=== PATIENT | male | born 1965 | race Caucasian/White ===

== ENCOUNTER 2024-05-24 16:53 | Outpatient (REF) | payer OTHER, SELFPAY ==
[2024-05-24 21:16] LABS: HCT 47.5 % (40.0-50.0); HGB 16.5 g/dL (13.5-17.5); MCH 31.7 pg (27.0-33.0); MCHC 34.7 % (32.0-36.0); MCV 91 fL (80-95); MPV 10.6 fL (8.0-11.0); Platelet Count 221 10^3/uL (130-400); RBC 5.21 10^6/uL (4.36-5.78); RDW 12.7 % (11.8-14.1); RDW-SD 41.9 fL; WBC 9.84 10^3/uL (4.4-10.8)
[2024-05-24 21:35] LABS: ALT 37 U/L (16-63); AST 25 U/L (15-37); Alkaline Phosphatase 111 U/L (46-116); Anion Gap 8.6 mmol/L (3-11); BUN 16 mg/dL (7-18); Bilirubin, Total 0.59 mg/dL (0.2-1.0); CO2 26.4 mmol/L (21.0-32.0); CREATININE 0.9 mg/dL (0.70-1.30); Calcium 9.6 mg/dL (8.5-10.1); Calculated LDL 109 mg/dL (<100); Chloride 105 mmol/L (98-107); Cholesterol 196 mg/dL (<200); Glucose 106 mg/dL (74-106); HDL Cholesterol 60 mg/dL (>or=40); Potassium 4.2 mmol/L (3.5-5.1); Sodium 140 mmol/L (136-145); Triglyceride 136 mg/dL (<150)
== END 2024-05-24 16:54 | disposition home or self-care (01) ==
LOC: NCHCN 16:53
PROVIDERS: Visit Provider Nurse Practitioner Family
DX: Z00.00 Encounter for general adult medical examination without abnormal findings (principal)
CPT/HCPCS: 80053; 80061; 85027

== ENCOUNTER 2024-08-30 10:05 | Outpatient (REF) | payer OTHER, SELFPAY ==
[2024-08-30 14:22] LABS: Bilirubin Negative (Negative); Blood Large (Negative); Clarity Clear (Clear); Glucose Negative (Negative); Ketones Negative (Negative); Leukocyte Esterase Negative (Negative); Nitrite Negative (Negative); Specific Gravity 1.015 (1.005-1.025); Urobilinogen 0.2 mg/dL (Up to 0.2)
[2024-08-30 14:33] LABS: Bacteria Negative HPF (Negative); C & S Indicated? No; Casts Negative LPF (Negative); Crystals Negative HPF (Negative); Epithelial Cells Rare HPF (Negative); Mucus Negative (Negative); RBC >50 HPF (0-2); WBC 0-2 HPF (0-5)
== END 2024-08-30 10:06 | disposition home or self-care (01) ==
LOC: NCHCN 10:05
PROVIDERS: Visit Provider Family Medicine
DX: R31.0 Gross hematuria (principal)
CPT/HCPCS: 81003; 81015

== ENCOUNTER 2024-09-07 12:15 | Outpatient (CLI) | payer OTHER, SELFPAY ==
[2024-09-07 18:41] LABS: PSA, Screening 1.2 ng/mL (<=3.5)
== END 2024-09-07 12:16 | disposition home or self-care (01) ==
LOC: LBO 12:16
PROVIDERS: PCP Nurse Practitioner Family; Visit Provider Nurse Practitioner Gerontology
DX: R39.9 Unspecified symptoms and signs involving the genitourinary system (principal)
CPT/HCPCS: 36415; 84153

== ENCOUNTER 2024-09-28 16:49 | Outpatient (CLI) | payer OTHER, SELFPAY | END 2024-09-28 16:50 | disposition home or self-care (01) | PROVIDERS: PCP Nurse Practitioner Family; Visit Provider Urology | DX: N32.89 Other specified disorders of bladder (principal); R31.0 Gross hematuria | CPT/HCPCS: 36415; 86850; 86900; 86901 ==

== ENCOUNTER 2024-10-02 06:18 | Observation (INO) | payer OTHER, SELFPAY ==
[2024-10-02] VITALS (8 sets, daily range): BP systolic 111–132; BP diastolic 77–93; PULSE 54–70; RESP 14–18; TEMP 36.2–37.1; O2SAT 94–99; BMI 25.1
--- NOTE | 2024-10-02 06:22 | W.ANESPRE ---
General Info Date of Service Date Performed: 10/02/24 Height: 5 ft 10 in Weight: 79.379 kg Body Mass Index (BMI): 25.1 Surgical Procedure: Operation Date: 10/02/24 07:40 Proposed Procedure Side Surgeon p Cysto w/Transurethral Resection Bladder Tumor Guerrero Ospina MD Meds Allergies and Home Medications Allergies Allergy/AdvReac Type Severity Reaction Status Date / Time No Known Allergies Allergy Verified 10/02/24 06:58 Home Medication ?Medication ?Instructions ?Recorded apixaban 5 mg tablet (Eliquis) 5 mg PO BID 09/05/24 aspirin 81 mg tablet 81 mg PO DAILY 09/05/24 famotidine 40 mg tablet 40 mg PO DAILY 09/05/24 metoprolol tartrate 25 mg tablet 25 mg PO BID 09/05/24 Current Visit Medications: Current Medications Generic Name Dose Route Start Last Admin Trade Name Freq PRN Reason Stop Dose Admin Ringer's Solution 1,000 mls @ 80 mls/hr 10/02/24 06:00 IV 10/02/24 23:59 INFUSION DANIELLE Cefazolin Sodium/Dextrose 2 gm in 50 mls @ 100 mls/hr 10/02/24 06:00 Ancef Duplex IVPB 10/02/24 23:59 PREOP DANIELLE IV Miscellaneous Supplies 1 each 10/02/24 06:00 Iv Access IV 10/02/24 23:59 DIRECTED DANIELLE Sodium Chloride 0 ml 10/02/24 06:00 Normal Saline Flush 10 Ml Syr IV 10/02/24 23:59 PRN PRN Sodium Chloride 0 ml 10/02/24 06:00 Normal Saline 10 Ml Vial IJ 10/02/24 23:59 DIRECTED PRN Sterile Water 0 ml 10/02/24 06:00 Water,Injection,Sterile 10 Ml Vial IJ 10/02/24 23:59 DIRECTED PRN PFSH Active Problems Active Problems: Problem Status Onset Code Kvng hematuria Acute R31.0 Bladder mass Acute N32.89 Medical History Medical History CVA (cerebral vascular accident) Arthritis Kvng hematuria GERD (gastroesophageal reflux disease) Afib HTN (hypertension) Surgical History Surgical History (Updated 10/02/24 @ 07:00 by Arleen Walls) Hx of hand surgery local Hx of hernia repair at Tobacco Smoking/Tobacco Use Status: Former Tobacco Use Substance Use Substance use: Occasionally Substance use type: marijuana Details: smokes marijuana daily, multiple times a day. Vital Signs and Lab Results Vital Signs Most Recent Vital Signs in EMR: Temp Pulse Resp BP Pulse Ox 37.1 C 70 18 132/92 H 95 10/02/24 07:04 10/02/24 07:04 10/02/24 07:04 10/02/24 07:04 10/02/24 07:04 Lab Results Blood Type / Crossmatch: Antibody Screen NEGATIVE 09/28/24 Anesthesia Assessment and Plan Anesthesia History Personal History: No History of Anesthesia Complications and Unknown Anesthesia History Family History: No Family History of Anesthesia Complications Exercise Tolerance Exercise Tolerance: Metabolic Equivalents>4 Cardiac & Pulmonary Exam Cardiac Exam: Normal S1/S2 Heart Sounds Pulmonary Exam: Clear Bilateral Breath Sounds Implantable Cardiac Device Does patient have a Pacemaker or an ICD?: No Airway Exam Known Difficult Airway: No Mallampati Class: 2 Mouth Opening: Normal (> 3cm) Thyromental Distance: Greater than 3 cm Neck Range of Motion: Full ROM Neck Circumference: Normal Teeth Condition: Normal Dentition ASA Classification ASA Score: ASA 3 Emergency Case?: No NPO Status NPO Status: NPO Clears >2 hours, Solids >8 hours Anesthesia Plan Resuscitation Status: Full Code Anesthesia Technique: General Anesthesia Airway Planned: LMA Monitors Used: Standard Monitors Preoperative Comments:: 58 yo male for cysto/TURBT. Sig PMHx: HTN, afib (metoprolol, apixaban. Goes in and out, can tell.), CVA (2020. occipital. 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 rare. goes weeks without issues). former smoker. occ cannabis. ECHO ([place]2020): LVEF 55%, mild MR, large PFO, concentric LVH.
--- NOTE | 2024-10-02 06:54 | W.PM.HP.N ---
Date of service: 10/02/24 Time of Service: 06:54 Assessment and Plan Assessment and plan (1) Bladder mass: Status: Acute Assessment and plan: For cystoscopy with TURBT. We may need to keep him in the hospital for CBI postoperatively, but we will make that decision immediately after the procedure History of Present Illness History of Present Illness Chief Complaint: Bladder mass Narrative: Jared is a 58-year-old male with gross hematuria. He is on Eliquis for atrial fibrillation. He discontinued the Eliquis for a dental procedure and when he restarted the Eliquis, he noted gross hematuria with clots. His initial bleeding episode occurred about 3 months ago. He was evaluated with a CT urogram which showed a mass on the right side of the bladder. He presents now for cystoscopy and transurethral resection of any visible bladder tumor. We have arranged for possible admission for bladder irrigation based on the surgery outcome. He has held his Eliquis for 48 hours prior to the scheduled procedure. Review of Systems Narrative: No fevers or chills Decreased visual acuity due to stroke. No dysphasia No diabetes or thyroid dysfunction No shortness of breath, cough or hemoptysis Atrial Fibrillation - goes in and out. No chest pain GERD. No hepatitis, ulcers, jaundice, diarrhea or constipation Hx stroke. No seizures or peripheral neuropathy Routinely on Eliquis. No anemia No gout PFSH All Active Problems Kvng hematuria (Acute) Bladder mass (Acute) Medical History CVA (cerebral vascular accident) Arthritis GERD (gastroesophageal reflux disease) Afib HTN (hypertension) Surgical History Hx of hand surgery local Hx of hernia repair at Social History Smoking/Tobacco Use Status: Former Tobacco Use Smoking risk assessment performed?: Yes Alcohol Intake: former Drug use: Occasionally Substance use type: marijuana Details: smokes marijuana daily, multiple times a day. Marijuana: t-1, joint Housing: house Do you feel safe at home: Yes Do you feel safe in your relationship?: Yes Additional Social history: unable to assess privately Meds Allergies and Home Medications Allergies Allergy/AdvReac Type Severity Reaction Status Date / Time No Known Allergies Allergy Verified 10/02/24 06:58 Home Medications ?Medication ?Instructions ?Recorded ?Confirmed ?Type apixaban 5 mg tablet (Eliquis) 5 mg PO BID 09/05/24 10/02/24 History aspirin 81 mg tablet 81 mg PO DAILY 09/05/24 10/02/24 History famotidine 40 mg tablet 40 mg PO DAILY 09/05/24 09/28/24 History metoprolol tartrate 25 mg tablet 25 mg PO BID 09/05/24 10/02/24 History Exam Const General: cooperative and anxious Neck Neck: supple Resp Effort & Inspection: normal respiratory effort Auscultation: clear to auscultation bilaterally Cardio Rate: regular rate Rhythm: regular rhythm GI Palpation: soft and no masses Neuro General: patient alert, patient awake and patient oriented x3 Time Spent Time spent with Patient: <40 minutes Time was spent: preparing to see the patient(eg.review tests), obtaining and/or reviewing separately otained hiistory and other
[2024-10-02] MEDS: Lactated Ringers 1,000 ML 80 ML IV (07:20)
[2024-10-02] MEDS: ceFAZolin 2 GM/50 ML BAG IVPB (07:33)
[2024-10-02] MEDS: Lidocaine 2% Jelly 11 ML SYR (08:03)
--- NOTE | 2024-10-02 08:06 | BLADDER_PTH ---
PATIENT: Jared Fletcher LOC: [facility] U#:[id number] AGE/SX: 58/M ROOM: [facility].2 RE10/02/[address]: Guerrero Ospina MD : 1965 BED: A DIS: 10/02/2024 SPEC #: [id number] RECD: 10/02/24 12:56 STATUS: KINDRA REQ #: [id number] ILYA: 10/02/24 08:[address]: Guerrero Ospina DEPT: Surgical Specimen RECD BY: Lynette Garrett ENTERED: 10/02/24 12:57 SP TYPE: Bladder OTHR DR: Viviana Lindsey Tissues: 1 - BLADDER BIOPSY Procedures: GROSS AND MICRO LEVEL 5 Comments: [id number]
--- NOTE | 2024-10-02 08:25 | W.PM.DSUDISC ---
Date of service: 10/02/24 Discharge Plan Disposition Patient Disposition: Home Condition: Stable Discharge Details Admit Date/Time: 10/02/24 06:18 Admit Provider: Guerrero Ospina Attending Provider: Guerrero Ospina Primary Care Provider: Viviana Lindsey Home Meds and New Rx's Prescriptions: No Action famotidine 40 mg tablet 40 mg PO DAILY aspirin 81 mg tablet 81 mg PO DAILY metoprolol tartrate 25 mg tablet 25 mg PO BID Eliquis 5 mg tablet 5 mg PO BID Discharge Instructions Additional Instructions: foster to leg bag or large drainage bag follow up 3 to 5 days for catheter removal followup 1 to 2 weeks for pathology results hold Eliquis after 24 hours only if urine remains clear - otherwise hold Eliquis until until is clear for 24 hours Activity:: no lifting over 10 pounds Equipment/Supplies:: foster to leg bag/large dr Diet:: As Tolerated Discharge Orders Discharge Orders: Discharge Order (Routine); Ordered 10/02/24 Ordered By: Guerrero Ospina DS: Diagnosis Discharge Diagnosis (1) Bladder mass: Status: Acute
--- NOTE | 2024-10-02 08:31 | ROE_ITS ---
Operative Note Operative Note PRE-OP DIAGNOSIS: Bladder tumor POST-OP DIAGNOSIS: same PROCEDURE: cystoscopy with TUR Bladder Tumor (2 to 5 cm) SURGEON: Guerrero Ospina ANESTHESIA TYPE: Local By Surgeon and General LMA/ETT Refer to Anesthesia Record ESTIMATED BLOOD LOSS: 5 PATHOLOGY: other (bladder tumor) COMPLICATIONS: None Patient was transported to: PACU Patient's condition: stable Implants: 20 tajik foster catheter with 10 cc sterile water in balloon Indications: This is a 58-year-old gentleman who developed gross, painless hematuria about 3 months ago. His evaluation included a CT urogram which showed no upper tract disease but filling defects on the right side of the bladder. He presents now for cystoscopy and transurethral resection of these areas Findings: Two papillary lesions on right bladder wall - lesions measure 2 to 5 cm in total Procedure Description: The patient was given antibiotics and brought to the operating room on 10/02/2024. After successful induction of general anesthesia, he was placed in the dorsal lithotomy position. His genitalia was prepped and draped. 2% Xylocaine jelly was instilled into the urethra to act as a local anesthetic. Initial attempts at passing a 22 [place]araguan cystoscope were met with resistance at the urethral meatus. The meatus was dilated to a size 24 [place]ar[place] using [place] sounds. The 22 [place]uan cystoscope was then passed through the urethra into the bladder. The urethra and bladder were inspected using the 30 degree lens. The pendulous, bulbar and membranous urethra all appeared normal with no strictures. No papillary lesions were seen on the prostatic mucosa. The bladder neck was then entered and the bladder mucosa was inspected. Both ureteral orifices appeared normal with no blood coming from either side. On the right bladder wall, 2 [id number] papillary lesions were identified. Each of t hese lesions measured between 1 and 1.5 cm in largest dimension, so the aggregate tumor burden was between 2 and 5 cm. There was no nodular component to the visible tumor. No additional abnormalities were seen throughout the bladder wall. The cystoscope was removed and a 24 Nicaraguan resectoscope sheath was passed through the urethra into the bladder. Transurethral resection of the visible bladder tumors was performed using an [employer] resectoscope and bipolar cautery. All resected tissue was evacuated and sent to pathology for permanent section. The resection site was cauterized using the coagulation current. Hemostasis appeared excellent with no active bleeding. I then filled the bladder with irrigant and removed the resectoscope. I passed a 20 [place]araguan Foster catheter through the urethra into the bladder. The catheter balloon was inflated with 10 cc of sterile water and the catheter was hooked to gravity drainage. The patient tolerated the procedure well with no complications. He was taken to the recovery room in stable condition. Date of Procedure: 10/02/24
--- NOTE | 2024-10-02 08:40 | W.ANESPOSTOP ---
Postoperative Evaluation Date, Time and Location Date Performed: 10/02/24 Time Performed: 08:40 Patient Location: PACU Vital Signs Most Recent Imported Vital Signs: Most Recent Vital Signs Temp Pulse Resp BP Pulse Ox 36.4 C L 61 14 118/85 99 10/02/24 08:38 10/02/24 08:38 10/02/24 08:38 10/02/24 08:38 10/02/24 08:38 Pain Score Most Recent Pain Score: Most Recent Pain Score Pain Level 0 10/02/24 07:04 Assessment Mental Status: Arousable with meaningful communication Airway and Respiratory Function: Patent airway with normal (patient baseline) respiratory exam Cardiovascular Function: Hemodynamically Stable Hydration Status: Adequately Hydrated Nausea & Vomiting: No Nausea or Vomiting Pain: Pain is tolerable per patient Peripheral Nerve Block: Patient did not receive a nerve block
[2024-10-02] MEDS: Phenazopyridine 200 MG TAB PO (09:16)
== END 2024-10-02 10:42 | disposition home or self-care (01) ==
PROVIDERS: Admitting Provider Urology; PCP Nurse Practitioner Family; Visit Provider Urology
PROC: 0TBB8ZZ Excision of Bladder, Via Natural or Artificial Opening Endoscopic (ICD-10-PCS; CPT 52235; principal; 2024-10-02 07:30)
DX: C67.9 Malignant neoplasm of bladder, unspecified (principal); R31.0 Gross hematuria; Z79.01 Long term (current) use of anticoagulants; Z79.82 Long term (current) use of aspirin; Z86.73 Personal history of transient ischemic attack (TIA), and cerebral infarction without residual deficits; K21.9 Gastro-esophageal reflux disease without esophagitis; I48.91 Unspecified atrial fibrillation; I10 Essential (primary) hypertension; Z87.891 Personal history of nicotine dependence; F12.90 Cannabis use, unspecified, uncomplicated
CPT/HCPCS: 52235; 88305; 88307; J0131; J0690; J1100; J1885; J2250; J2405; J2704

== ENCOUNTER 2025-02-05 06:15 | Day surgery (SDC) | payer OTHER, SELFPAY ==
[2025-02-05 06:30] VITALS: BP 133/96; PULSE 68; RESP 16; TEMP 36.4; O2SAT 95
[2025-02-05] MEDS: Lactated Ringers 1,000 ML 80 ML IV (06:50)
--- NOTE | 2025-02-05 06:57 | W.PM.HP.N ---
Date of service: 02/05/25 Time of Service: 06:58 History of Present Illness History of Present Illness Chief Complaint: Bladder cancer Narrative: This is a 59-year-old gentleman who has a history of urothelial cell carcinoma. His initial tumor was high-grade but noninvasive. He elected not to have intravesical treatments. On surveillance cystoscopy, we found a small recurrence up toward the dome of the bladder. He presents now for transurethral resection and instillation of Mitomycin-C into the bladder. Review of Systems Narrative: No fevers or chills No vision change or dysphasia No diabetes or thyroid dysfunction No shortness of breath, cough or hemoptysis No chest pain or palpitations GERD. No hepatitis, ulcers, jaundice, diarrhea or constipation No seizures, strokes or peripheral neuropathy Held Eliquis. No gout PFSH All Active Problems Urothelial carcinoma of bladder (Acute) Kvng hematuria (Acute) Medical History Bladder mass CVA (cerebral vascular accident) Occipital Stroke per x3 2020- Per states this was r/t to his afib and f/u cardiology...now f/u with PCP Viviana Lindsey Arthritis GERD (gastroesophageal reflux disease) Afib HTN (hypertension) Surgical History Hx of hand surgery local Hx of hernia repair at Social History Smoking/Tobacco Use Status: Former Tobacco Use Quit Date: 03/22/15 Smoking risk assessment performed?: Yes Alcohol Intake: former Drug use: Occasionally Substance use type: marijuana Details: vaping cannabis. Housing: house Do you feel safe at home: Yes Do you feel safe in your relationship?: Yes Additional Social history: unable to assess privately Meds Allergies and Home Medications Allergies Allergy/AdvReac Type Severity Reaction Status Date / Time No Known Allergies Allergy Verified 02/05/25 06:28 Home Medications Medication Instructions Recorded Confirmed Type apixaban 5 mg tablet (Eliquis) 5 mg PO BID 09/05/24 02/05/25 History aspirin 81 mg tablet 81 mg PO DAILY 09/05/24 02/05/25 History famotidine 40 mg tablet 40 mg PO DAILY 09/05/24 02/05/25 History metoprolol tartrate 25 mg tablet 25 mg PO BID 09/05/24 02/05/25 History Exam Const General: cooperative Neck Neck: supple Resp Effort & Inspection: normal respiratory effort Auscultation: clear to auscultation bilaterally Cardio Rate: regular rate Rhythm: regular rhythm GI Palpation: soft and no masses Neuro General: patient alert, patient awake and patient oriented x3 Results Last Vital Signs Temp 36.4 C L 02/05/25 06:30 Pulse 68 02/05/25 06:30 Resp 16 02/05/25 06:30 BP 133/96 H 02/05/25 06:30 Pulse Ox 95 02/05/25 06:30 Time Spent Time spent with Patient: <40 minutes Time was spent: other
--- NOTE | 2025-02-05 07:06 | W.ANESPRE ---
General Info Date of Service Date Performed: 02/05/25 Height: 5 ft 10 in Weight: 80.6 kg Body Mass Index (BMI): 25.4 Surgical Procedure: Operation Date: 02/05/25 07:40 Proposed Procedure Side Surgeon p Cystoscopy with Bladder Biopsy and Fulguration Guerrero Ospina MD s Instillation of Mitomycin Guerrero Ospina MD Meds Allergies and Home Medications Allergies Allergy/AdvReac Type Severity Reaction Status Date / Time No Known Allergies Allergy Verified 02/05/25 06:28 Home Medication Medication Instructions Recorded apixaban 5 mg tablet (Eliquis) 5 mg PO BID 09/05/24 aspirin 81 mg tablet 81 mg PO DAILY 09/05/24 famotidine 40 mg tablet 40 mg PO DAILY 09/05/24 metoprolol tartrate 25 mg tablet 25 mg PO BID 09/05/24 Current Visit Medications: Current Medications Generic Name Dose Route Start Last Admin Trade Name Freq PRN Reason Stop Dose Admin Mitomycin 40 mg/ Sodium 0 mg 02/05/25 06:00 Chloride 40 ml BLADIN 02/05/25 23:59 TODAY DANIELLE Ringer's Solution 1,000 mls @ 80 mls/hr 02/05/25 06:00 02/05/25 06:50 IV 02/05/25 23:59 80 mls/hr INFUSION DANIELLE Administration IV Miscellaneous Supplies 1 each 02/05/25 06:00 Iv Access IV 02/05/25 23:59 DIRECTED DANIELLE Sodium Chloride 0 ml 02/05/25 06:00 Normal Saline Flush 10 Ml Syr IV 02/05/25 23:59 PRN PRN Sodium Chloride 0 ml 02/05/25 06:00 Normal Saline 10 Ml Vial IJ 02/05/25 23:59 DIRECTED PRN Sterile Water 0 ml 02/05/25 06:00 Water,Injection,Sterile 10 Ml Vial IJ 02/05/25 23:59 DIRECTED PRN PFSH Active Problems Active Problems: Problem Status Onset Code Urothelial carcinoma of bladder Acute C67.9 Kvng hematuria Acute R31.0 Medical History Medical History Bladder mass CVA (cerebral vascular accident) Occipital Stroke per x3 2020- Per states this was r/t to his afib and f/u cardiology...now f/u with PCP Viviana Young Arthritis GERD (gastroesophageal reflux disease) Afib HTN (hypertension) Surgical History Surgical History Hx of hand surgery local Hx of hernia repair at Tobacco Smoking/Tobacco Use Status: Former Tobacco Use Alcohol Alcohol Intake: former Substance Use Substance use: Occasionally Substance use type: marijuana Details: vaping cannabis. Vital Signs and Lab Results Vital Signs Most Recent Vital Signs in EMR: Most Recent Vital Signs Temp Pulse Resp BP Pulse Ox 36.4 C L 68 16 133/96 H 95 02/05/25 06:30 02/05/25 06:30 02/05/25 06:30 02/05/25 06:30 02/05/25 06:30 Anesthesia Assessment and Plan Anesthesia History Personal History: No History of Anesthesia Complications Family History: No Family History of Anesthesia Complications Exercise Tolerance Exercise Tolerance: Metabolic Equivalents>4 Pertinent Negatives Pertinent Negatives: No Symptoms of GERD Cardiac & Pulmonary Exam Cardiac Exam: Normal S1/S2 Heart Sounds Pulmonary Exam: Clear Bilateral Breath Sounds Implantable Cardiac Device Does patient have a Pacemaker or an ICD?: No Airway Exam Known Difficult Airway: No Mallampati Class: 2 Mouth Opening: Normal (> 3cm) Thyromental Distance: Greater than 3 cm Neck Range of Motion: Full ROM Neck Circumference: Normal Teeth Condition: Normal Dentition ASA Classification ASA Score: ASA 2 Emergency Case?: No NPO Status NPO Status: NPO Clears >2 hours, Solids >8 hours Anesthesia Plan Resuscitation Status: Full Code Anesthesia Technique: General Anesthesia Airway Planned: LMA Monitors Used: Standard Monitors
[2025-02-05 07:07] VITALS: BMI 25.4
[2025-02-05] MEDS: Lidocaine 2% Jelly 11 ML SYR (08:27)
[2025-02-05] MEDS: mitoMYcin 40 MG, Normal Saline 40 ML BLADIN (08:47)
--- NOTE | 2025-02-05 08:56 | W.PM.DSUDISC ---
Date of service: 02/05/25 Discharge Plan Disposition Patient Disposition: Home Condition: Stable Discharge Details Reason For Visit: bladder tumor Attending Provider: Guerrero Ospina Primary Care Provider: Viviana Lindsey Home Meds and New Rx's Prescriptions: No Action famotidine 40 mg tablet 40 mg PO DAILY aspirin 81 mg tablet 81 mg PO DAILY metoprolol tartrate 25 mg tablet 25 mg PO BID Eliquis 5 mg tablet 5 mg PO BID Discharge Instructions Additional Instructions: I did not take a biopsy of the area (I simply burned it off) so there is no neeed for a pathology result visit followup 3 months for cystoscopy in office Stand Alone Forms: Portal Information Activity:: Activity as Tolerated Shower/Bathe:: 24 hours Diet:: As Tolerated Discharge Orders Discharge Orders: Discharge Order (Routine); Ordered 02/05/25 Ordered By: Guerrero Ospina
--- NOTE | 2025-02-05 08:58 | ROE_ITS ---
Operative Note Operative Note PRE-OP DIAGNOSIS: Bladder cancer POST-OP DIAGNOSIS: same PROCEDURE: cystoscopy, transurethral fulguration of bladder tumor, instill Mitomycin C into bladder SURGEON: Guerrero Ospina ANESTHESIA TYPE: Local By Surgeon and General LMA/ETT Refer to Anesthesia Record ESTIMATED BLOOD LOSS: 5 PATHOLOGY: none sent COMPLICATIONS: None Patient was transported to: PACU Patient's condition: stable Implants: 40 mg Mitomycin C mixed in 40 mL dilutant into bladder Indications: This is a 59-year-old gentleman who has a history of hematuria. He was identifi ed as having bladder mass. He underwent transurethral resection and his pathology demonstrated high-grade noninvasive urothelial cell carcinoma of the bladder. He elected not to have intravesical chemotherapy or immunotherapy. On his 3 month surveillance cystoscopy, we identified a very small papillary lesion up toward the dome of his bladder. He presents for biopsy/fulguration of the lesion and instillation of a single dose of postoperative chemotherapy. Findings: small (less than 2 cm) papillary lesion at dome Procedure Description: The patient was brought to the operating room mL of . He was given a single dose of IV antibiotics. After successful induction of general anesthes ia, he was placed in the dorsal lithotomy position. His genitalia was prepped and draped. 2% Xylocaine jelly was instilled into the urethra for local anesthetic. A 24 [place]ian resectoscope sheath was passed through the urethra into the bladder. The urethra and bladder were inspected using air the visual obturator and a 30 degree lens. The pendulous, bulbar and membranous urethra were normal with a strictures. The prostatic urethra showed some lateral lobe enlargement but no significant median lobe. The bladder neck was entered and the bladder mucosa was inspected. There was some hyperemia along the right posterior bladder wall in the location of his previous transurethral resection. There was a single less than 2 cm papillary lesion up towards the dome. No additional bladder lesions were identified. Using bipolar cautery, we fulgurated the visible papillary lesion and the hyperemic area. Bleeding was well-controlled. The resectoscope was then removed and a 16 [place]ian [place] catheter was passed through the urethra into the bladder. The catheter balloon was inflated with 10 cc of sterile water. The bladder was drained. A solution containing 40 mg of Mitomycin-C mixed and 40 mL of dilute, was then instilled into the catheter. The catheter was clamped leaving the solution in place. The patient tolerated the procedure well. He was taken to the recovery room in stable condition. We will plan on leaving the mitomycin C in the bladder for at least 1 hour as long as it is tolerated. The bladder will then be drained and the catheter will be removed prior to the patient's discharge. The patient tolerated this procedure well with no complications. Date of Procedure: 02/05/25
[2025-02-05 09:02] VITALS: BP 108/83; PULSE 67; RESP 14; TEMP 36.1; O2SAT 95
--- NOTE | 2025-02-05 09:26 | W.ANESPOSTOP ---
Postoperative Evaluation Date, Time and Location Date Performed: 02/05/25 Time Performed: : Patient Location: Day Surgery Unit Vital Signs Most Recent Imported Vital Signs: Most Recent Vital Signs Temp Pulse Resp BP Pulse Ox 36.1 C L 67 14 108/83 95 02/05/25 09:02 02/05/25 09:02 02/05/25 09:02 02/05/25 09:02 02/05/25 09:02 Pain Score Most Recent Pain Score: Most Recent Pain Score Pain Level 0 02/05/25 09:02 Assessment Mental Status: Awake (Alert & Oriented to Patient Baseline) Airway and Respiratory Function: Patent airway with normal (patient baseline) respiratory exam Cardiovascular Function: Hemodynamically Stable Hydration Status: Adequately Hydrated Nausea & Vomiting: No Nausea or Vomiting Pain: Pt. Denies Any Pain Peripheral Nerve Block: Patient did not receive a nerve block
[2025-02-05 09:34] VITALS: BP 121/88; PULSE 59; RESP 14; TEMP 36.4; O2SAT 95
== END 2025-02-05 10:00 | disposition home or self-care (01) ==
PROVIDERS: PCP Nurse Practitioner Family; Visit Provider Urology
PROC: 0TBB8ZX Excision of Bladder, Via Natural or Artificial Opening Endoscopic, Diagnostic (ICD-10-PCS; CPT 52204; principal; 2025-02-05 07:30)
PROC: (CPT 52234; 2025-02-05 07:30)
DX: C67.1 Malignant neoplasm of dome of bladder (principal); R31.0 Gross hematuria; Z79.01 Long term (current) use of anticoagulants; I48.91 Unspecified atrial fibrillation; I10 Essential (primary) hypertension
CPT/HCPCS: 52234; J0131; J0690; J1100; J1885; J2003; J2405; J2704; J3010; J9280

== ENCOUNTER 2025-03-06 12:22 | Inpatient (IN) | payer OTHER, SELFPAY ==
[2025-03-06] VITALS (55 sets, daily range): BP systolic 94–131; BP diastolic 68–97; PULSE 59–117; RESP 11–23; TEMP 36.4–37.7; O2SAT 92–98
--- NOTE | 2025-03-06 | DI.CT_ITS ---
Exam(s) CT THORAX ABD/PEL CTA EXAM: CT THORAX ABD/PEL CTA CLINICAL HISTORY: GI bleed. TECHNIQUE: Imaging Protocol: Axial CT angiography was performed with multi- slice acquisition and multi-planar and/or 3D reconstructions. CONTRAST MATERIAL: Intravenous: Omnipaque 350 Contrast volume:100 ml Oral: no COMPARISON: CT CT ABDOMEN PELVIS WO/W from 09/18/2024 FINDINGS: CHEST: Pulmonary Arteries: No evidence of filling defect to suggest pulmonary emboli. Tracheobronchial tree: Patent where visualized. Mediastinum and Cate: No dominant adenopathy or fluid collection. Pulmonary parenchyma: No consolidation or dominant measurable mass. No architectural distortion. Pleura: No effusion or pneumothorax. Heart: The heart is not dilated. No coronary artery calcifications are seen. Aorta: Tho ascending aorta measures 4 cm in diameter. Minimal atherosclerotic changes. Bones: Normal. Tubes, Catheters, and Lines: ABDOMEN AND PELVIS: Abdomen: Celiac axis/mesenteric arteries: No evidence of occlusion or significant stenosis. Renal Arteries: No evidence of occlusion or significant stenosis. There is a single renal artery perfusing each kidney. Aorta: No evidence of occlusion or significant stenosis. No aneurysm or dissection. Mild atherosclerotic changes. Pelvis: Iliac Arteries: No evidence of occlusion or significant stenosis. Common Femoral Arteries: No evidence of occlusion or significant stenosis. ABDOMEN: Liver: Normal density. No measurable mass. Portal, Superior Mesenteric, and Splenic Veins: Unremarkable. Gallbladder and Biliary Tract: Tiny calcification in gallbladder wall. No biliary dilation. Pancreas: Normal density, no abnormal calcifications or inflammatory process. Spleen: Normal. Adrenals: No masses seen. Kidneys: Normal size, contour and axis. No radiodense stones or obstructive uropathy. Bilateral cysts are again noted. No follow-up recommended. No suspicious masses seen. Bowel: No obstruction or bowel wall thickening. Appendix is unremarkable. Mild diverticulosis. No evidence of diverticulitis. Peritoneal Cavity: No ascites, collection or mesenteric inflammatory response. Lymph Nodes: Within normal limits. Bones: Unremarkable degenerative changes of the lumbar spine. Soft Tissues: Unremarkable. PELVIS: Bladder: Bladder is nearly empty and not well evaluated. Previous exam showed a right-sided bladder mass. This is not visible on the current exam. There is question of bladder wall thickening versus under distension. Reproductive Organs: Unremarkable as visualized. Lymph Nodes: Within normal limits. Bones: Small sclerotic foci in the sacrum consistent with bone islands. IMPRESSION: Mildly dilated ascending thoracic aorta 4 cm. No evidence of dissection. Minimal atherosclerotic changes in the abdomen or pelvis. No evidence of active GI bleed. Bladder wall thickening. The previously noted bladder mass is not visible. Clinical correlation recommended. The preliminary [facility] report was reviewed. RADIATION DOSE DELIVERED: 1,106.6mGy.cm Total DLP DATA REPOSITORY: All CT scans at this facility are submitted to the National Radiology Data Registry (NRDR) Dose Index Registry (DIR) with the [employer] (ACR). RADIATION OPTIMIZATION: All CT scans at this facility use at least one of these dose optimization techniques: automated exposure control; mA and/or kV adjustment per patient size (includes targeted exams where dose is matched to clinical indication); or iterative reconstruction.
--- NOTE | 2025-03-06 12:15 | RT.EKG_ITS ---
APPROVED REPORT Exam: Resting ECG Reason for Exam: syncopy Patient Location: E HR:90 bpm ECG Measurements Heart Rate 90 AXIS NH 160 P 45 QRSd 81 QRS -29 QT 350 T 40 QTc 428 Conclusion Sinus rhythm...normal P axis, V-rate 60- 99 No Occlusion AK
[2025-03-06] MEDS: Pantoprazole 40 MG VIAL 80 MG IVP (12:54)
[2025-03-06] MEDS: Normal Saline 500 ML IV (12:55)
[2025-03-06 12:59] LABS: Abs Immature Grans 0.14 10^3/uL (0.0-0.06); HCT 35.2 % (40.0-50.0); HGB 12.2 g/dL (13.5-17.5); Immature Grans % 0.7 %; MCH 31.1 pg (27.0-33.0); MCHC 34.7 % (32.0-36.0); MCV 90 fL (80-95); MPV 10.2 fL (8.0-11.0); Platelet Count 270 10^3/uL (130-400); RBC 3.92 10^6/uL (4.36-5.78); RDW 13.2 % (11.8-14.1); RDW-SD 43.3 fL; WBC 19.26 10^3/uL (4.4-10.8)
--- NOTE | 2025-03-06 13:02 | W.ED.GENAD ---
Discharge Plan Disposition Patient Disposition: Admit to [facility] Discharge Details Clinical Impression: Hematemesis, Normocytic anemia Primary Care Provider: Viviana Lindsey ED Provider: Fran Morocho Home Meds and New Rx's Prescriptions: No Action finasteride [Proscar] 5 mg tablet 5 mg PO DAILY Qty: 7 0RF famotidine 40 mg tablet 40 mg PO DAILY aspirin 81 mg tablet 81 mg PO DAILY metoprolol tartrate 25 mg tablet 25 mg PO BID Eliquis 5 mg tablet 5 mg PO BID HPI General Date/Time Provider Initiated Documentation: 03/06/25 12:25. HPI Narrative: MDM This is an overall well-appearing initially tachycardic but afebrile 59-year-old anticoagulated male on apixaban with emesis concerning for upper GI bleed for which patient will be made n.p.o. given 500 cc of normal saline and 80 mg of pantoprazole. Will obtain CBC and if patient has anemia we will reverse with 4 factor PCC. Patient has no abdominal pain nor any reports of melena nor hematochezia to suggest benefit from CT angiogram to assess for any IR targets. Will assess for any acute electrolyte abnormalities. Patient not an alcoholic to suggest increased risk for gastritis. Litzy-Sosa tear certainly in the differential. Anticipate patient will require hospitalization. 1:06 PM Patient does have new normocytic anemia. CBC also notable for leukocytosis. No thrombocytopenia. Will reverse with 4 factor PCC. 1:23 PM Comprehensive metabolic panel showing no MATILDA. Elevated BUN concerning for possibility of GI bleed. Normal magnesium. 3:25 PM No vomiting in the ED. Patient's tachycardia resolved. Undetectable ethanol level. He is nauseous so I treated with ondansetron. He is due for his repeat H&H in several hours. 4 PM Hemoglobin down trended from 12.2-11.3. I was in touch with Dr. Keita who graciously agreed to accept the patient for hospitalization. Patient received ondansetron in the ED. He did not have any vomiting in the ED. He received a total of 500 cc of crystalloid in the ED. Diagnostic interpretations performed by me: Per my independent interpretation EKG shows: Narrow complex normal sinus rhythm at rate of 90. Left axis. Low voltage left chest wall leads. No prior for comparison. HPI This is a 59-year-old male with a history of atrial fibrillation, stroke, and bladder cancer presenting with hematemesis. This morning, while working on a lift, the patient experienced dizziness and lightheadedness, leading to a near-fainting episode. Upon regaining consciousness, he found himself covered in vomit and was informed by a colleague that he appeared to have had a seizure. He did not bite his tongue or lose control of his bowels or bladder during this episode and has no history of seizures. He initially attributed the red color of his vomit to a red velvet muffin he had consumed earlier that day. Despite the presence of EMS, he opted to return home and rest. However, he had another episode of vomiting blood at home. Approximately 30 minutes after lying on the couch, he began to sweat profusely and felt the urge to vomit. This time, he vomited a cupful of blood. He reports no abdominal pain or nausea. He has not noticed any black or bloody stools. He has a history of atrial fibrillation and stroke and is currently on Eliquis. He has a history of bladder cancer, diagnosed 6 months ago, and underwent chemotherapy on 01/25/2025. He reports no hematuria and maintains normal eating and drinking habits. He feels otherwise well and was reluctant to seek medical attention. PAST SURGICAL HISTORY: Bladder cancer surgery: 08/2024 and 11/2024 Upper endoscopy for acid reflux: 20 years ago Exam General: Well-appearing in no acute distress speaking in complete sentences. Head: Normocephalic, atraumatic. Eye: Extraocular eye movements intact. No conjunctival injection. No scleral icterus. Ear, nose, mouth, throat: Grossly normal inspection. Normal voice, handling secretions normally. Neck: Trachea midline. Cardiovascular: Well-perfused distal extremities. Regular rate and rhythm. Respiratory: Nonlabored respiration. Clear lungs bilaterally. Gastrointestinal: Nondistended abdomen. Soft. Nontender. No rebound. No guarding. Musculoskeletal: No edema. Moving all 4 extremities spontaneously. Skin: Normal for age and race, grossly normal temperature and turgor. No acute rash. Neurologic: Alert and appropriate, no apparent acute deficits. Psychiatric: Mood and manner are appropriate. Grooming and personal hygiene are appropriate. Related Data Home Medications ?Medication ?Instructions ?Recorded ?Confirmed apixaban 5 mg tablet (Eliquis) 5 mg PO BID 09/05/24 03/06/25 aspirin 81 mg tablet 81 mg PO DAILY 09/05/24 03/06/25 famotidine 40 mg tablet 40 mg PO DAILY 09/05/24 03/06/25 metoprolol tartrate 25 mg tablet 25 mg PO BID 09/05/24 03/06/25 finasteride 5 mg tablet (Proscar) 5 mg PO DAILY hematuria #7 tabs 02/09/25 03/06/25 Previous Rx's ?Medication ?Instructions ?Recorded finasteride 5 mg tablet (Proscar) 5 mg PO DAILY hematuria #7 tabs 02/09/25 Allergies Allergy/AdvReac Type Severity Reaction Status Date / Time No Known Allergies Allergy Verified 03/06/25 12:35 General Stated Complaint: [id number] ASHLEY: 3 Course Vital Signs Vital signs: Vital Signs Temperature 36.4 C L 03/06/25 12:24 Pulse 106 H 03/06/25 12:24 Respiratory Rate 23 03/06/25 12:24 Blood Pressure 121/97 H 03/06/25 12:24 Pulse Oximetry 96 03/06/25 12:24 Temperature 36.4 C L 03/06/25 12:24 Temperature Source Oral 03/06/25 12:24 Pulse 106 H 03/06/25 12:24 Respiratory Rate 23 03/06/25 12:24 Blood Pressure 121/97 H 03/06/25 12:24 Blood Pressure Position Sitting 03/06/25 12:24 Pulse Oximetry 96 03/06/25 12:24 Lab/Test Results Lab/Test Results: Laboratory Tests Range/Units 03/06/25 12:50 WBC (4.4-10.8) 10^3/uL 19.26 H RBC (4.36-5.78) 10^6/uL 3.92 L Hgb (13.5-17.5) g/dL 12.2 L Hct (40.0-50.0) % 35.2 L MCV (80-95) fL 90 MCH (27.0-33.0) pg 31.1 MCHC (32.0-36.0) % 34.7 RDW (11.8-14.1) % 13.2 Plt Count (130-400) 10^3/uL 270 MPV (8.0-11.0) fL 10.2 Immature Gran % % 0.7 Neutrophils % % 84.9 Lymphocytes % % 8.7 Monocytes % % 5.1 Eosinophils % % 0.2 Basophils % % 0.4 Nucleated RBC % (0.0-0.3) % 0.0 Absolute Neutrophils (1.2-6.7) 10^3/uL 16.35 H Absolute Lymphocytes (1.2-3.4) 10^3/uL 1.68 Absolute Monocytes (0.1-0.8) 10^3/uL 0.98 H Absolute Eosinophils (0.0-0.7) 10^3/uL 0.04 Absolute Basophils (0.0-0.2) 10^3/uL 0.08 PFSH All Active Problems (Updated 03/06/25 @ 16:18 by Fran Morocho MD) Normocytic anemia (Acute) GI bleed (Chronic) Hematemesis (Acute) Urothelial carcinoma of bladder (Acute) Kvng hematuria (Acute) Medical History (Updated 03/06/25 @ 16:18 by Fran Morocho MD) Bladder mass CVA (cerebral vascular accident) Occipital Stroke per x3 2020- Per states this was r/t to his afib and f/u cardiology...now f/u with PCP Viviana Lindsey Arthritis GERD (gastroesophageal reflux disease) Afib HTN (hypertension) Surgical History Hx of hand surgery local Hx of hernia repair at Social History Smoking/Tobacco Use Status: Former Tobacco Use Quit Date: 03/22/15 Smoking risk assessment performed?: Yes Alcohol Intake: former Drug use: Daily Substance use type: marijuana Details: vaping cannabis. Housing: house Do you feel safe at home: Yes Do you feel safe in your relationship?: Yes Additional Social history: unable to assess privately
[2025-03-06 13:15] LABS: Magnesium 1.8 mg/dL (1.6-2.6)
[2025-03-06 13:17] LABS: ALT 20 U/L (10-49); AST 16 U/L (<34); Albumin 3.6 g/dL (3.2-5.0); Alkaline Phosphatase 80 U/L (46-116); Anion Gap 10.2 mmol/L (3-11); BUN 29 mg/dL (9-23); Bilirubin, Total 0.6 mg/dL (0.2-1.2); CO2 24.8 mmol/L (20.0-31.0); Calcium 8.7 mg/dL (8.3-10.6); Chloride 107 mmol/L (98-107); Glucose 136 mg/dL (74-106); Potassium 4.0 mmol/L (3.5-5.1); Sodium 142 mmol/L (136-145); Total Protein 5.8 g/dL (5.7-8.2)
[2025-03-06] MEDS: HUMAN PROTHROM. CMPX. 1,500 UNIT in EMPTY EVACUATED CONTAINER 1 EACH 360 UNIT IV (13:54)
--- NOTE | 2025-03-06 14:27 | SCONE_ITS ---
Date of service: 03/06/25 Time of Service: 14:27 Assessment and Plan Assessment and plan (1) Hematemesis: Status: Acute Assessment and plan: Patient is a 59-year-old male who presented to the ED after a syncopal episode and with concern for hematemesis. He notes a history of prior syncopal episodes with vomiting. He states however today that he was concerned that he was vomiting blood. He had 1 additional episode of hematemesis and presented to the ED for further evaluation. He denies any other current symptoms including abdominal pain, fevers, chills, chest pain, shortness of breath, or lightheadedness. He has no prior history of a GI bleed however he is currently anticoagulated with Eliquis due to atrial fibrillation. He denies any current alcohol use or significant history of heavy alcohol use. On presentation he was afebrile and hemodynamically stable. His abdomen is soft, nontender, nondistended. Since presentation to the emergency department he has not had any further hematemesis or concerns for melena. His hemoglobin on presentation was 12.2. Given his laboratory findings and history agree with admission to hospitalist service for ongoing monitoring. He currently remains stable without ongoing hematemesis and there is no indication for an emergent upper endoscopy at this time. Would continue NPO, trend CBC q6, continue protonix, and will monitor for ongoing hematemesis or GI bleeding. (2) GI bleed: Status: Chronic History of Present Illness Narrative: The patient is a 59-year-old male who presents with a hematemesis. This morning, while at work, he experienced a near-fainting episode on a lift, which led to him being brought down and laid flat. He subsequently lost consciousness and vomited, noticing blood in the vomitus upon regaining consciousness. Initially, he attributed the blood to a red velvet muffin he had consumed earlier. An ambulance was called, but he declined hospital admission, opting to return home with his . En route, he experienced another episode of vomiting, this time with bright red blood, approximately a cup in volume. He did not lose consciousness during this episode. He also reported a loose bowel movement this morning, which he described as unusual in appearance, but not tarry. He has been monitoring his urine for blood due to a history of bladder cancer, but reports no recent hematuria. He has no known history of gastrointestinal bleeding. His last meal was the muffin this morning, and he reports no abdominal pain or previous abdominal surgeries. He has not experienced any nausea since arriving at the hospital. He reports no use of ibuprofen or NSAIDs, and no current alcohol consumption, although he consumes alcohol occasionally. His last episode of vomiting occurred around 1130 hours today. He underwent an upper endoscopy approximately 20 years ago due to long- term acid reflux medication use, which revealed no significant findings. He has never had a colonoscopy. He has a history of bladder cancer, which was treated with surgical removal and chemotherapy. He is currently on a surveillance schedule every 3 months. He experienced hematuria after resuming Eliquis following his second bladder cancer surgery, which led to a temporary switch in medications. He has a history of atrial fibrillation, for which he is on anticoagulation therapy. He experienced a mini-stroke 5 years ago, characterized by a buzzing sensation in his head and temporary vision loss. He was not on anticoagulation therapy at the time of the stroke. Since then, he has had 3 to 4 fainting episodes. PAST SURGICAL HISTORY: Bladder cancer surgeries with subsequent chemotherapy. Upper endoscopy approximately 20 years ago. Review of Systems Constitutional Constitutional: Denies chills, Denies fatigue, Denies fever(s) and Denies weakness ENT Ears, Nose, Mouth, and Throat: Denies dizziness Cardiovascular Cardiovascular: Denies chest pain and Denies dyspnea Respiratory Respiratory: Denies dyspnea Gastrointestinal Gastrointestinal: Denies abdominal pain, Denies nausea and Denies vomiting Genitourinary Genitourinary: Denies dysuria Neurologic Neurologic: Denies dizziness and Denies weakness Endocrine Endocrine: Denies fatigue PFSH All Active Problems (Updated 03/06/25 @ 14:28 by Lorrie Scruggs MD) GI bleed (Chronic) Hematemesis (Acute) Urothelial carcinoma of bladder (Acute) Kvng hematuria (Acute) Medical History (Updated 03/06/25 @ 14:28 by Lorrie Scruggs MD) Bladder mass CVA (cerebral vascular accident) Occipital Stroke per x3 2020- Per states this was r/t to his afib and f/u cardiology...now f/u with PCP Viviana Lindsey Arthritis GERD (gastroesophageal reflux disease) Afib HTN (hypertension) Surgical History Hx of hand surgery local Hx of hernia repair at Social History Smoking/Tobacco Use Status: Former Tobacco Use Quit Date: 03/22/15 Smoking risk assessment performed?: Yes Alcohol Intake: former Drug use: Daily Substance use type: marijuana Details: vaping cannabis. Housing: house Do you feel safe at home: Yes Do you feel safe in your relationship?: Yes Additional Social history: unable to assess privately Exam Narrative Exam Narrative: General: Well appearing, no acute distress. Skin: Good turgor HEENT: Normocephalic, atraumatic, no visible masses CV: Regular rate Lungs: Bilateral equal chest rise, non-labored breathing Abdomen: Soft, non-tender, non-distended Extremities: Warm, well perfused Neurologic: No focal deficits Psychiatric: Alert and oriented, normal mood and affect Results Last Vital Signs Temp 36.4 C L 03/06/25 12:24 Pulse 106 H 03/06/25 12:24 Resp 23 03/06/25 12:24 BP 121/97 H 03/06/25 12:24 Pulse Ox 96 03/06/25 12:24 Labs 03/06/25 12:50 03/06/25 12:50 Labs: Laboratory Results - last 24 hr 03/06/25 12:50 WBC 19.26 H RBC 3.92 L Hgb 12.2 L Hct 35.2 L MCV 90 MCH 31.1 MCHC 34.7 RDW 13.2 Plt Count 270 MPV 10.2 Immature Gran % 0.7 Neutrophils % 84.9 Lymphocytes % 8.7 Monocytes % 5.1 Eosinophils % 0.2 Basophils % 0.4 Nucleated RBC % 0.0 Absolute Neutrophils 16.35 H Absolute Lymphocytes 1.68 Absolute Monocytes 0.98 H Absolute Eosinophils 0.04 Absolute Basophils 0.08 Sodium 142 Potassium 4.0 Chloride 107 Carbon Dioxide 24.8 Anion Gap 10.2 BUN 29 H Creatinine 0.91 Est GFR (CKD-EPI 2020) 85.22 Glucose 136 H Calcium 8.7 Magnesium 1.8 Total Bilirubin 0.6 AST 16 ALT 20 Alkaline Phosphatase 80 Total Protein 5.8 Albumin 3.6 Ethyl Alcohol < 3.0 ABO/Rh B Positive Antibody Screen NEGATIVE
[2025-03-06] MEDS: Ondansetron 4 MG/2 ML VIAL IVP (15:41)
[2025-03-06 15:51] LABS: HCT 31.8 % (40.0-50.0); HGB 11.3 g/dL (13.5-17.5)
--- NOTE | 2025-03-06 19:05 | W.PC.ACHO ---
Registration Status: ADM IN Primary Language: Preferred Language: ED Information & Data Chief Complaint [id number] 03/06/25 13:06 Other Complaint GI Bleed 03/06/25 12:24 Triage Note patient recently diagnosed 03/06/25 12:24 with bladder cancer. Patient state he had a stroke 5 years ago and since then he has been having blocking out/passing out episodes and he had one this morning while at work. also reported that he had red muffin and apple this morning before he passed out. Patient reported that when he arrived at home he vomited bright red blood. Patient is currently on Eliquis Medical / Surgical History (Last Reviewed 02/05/25 @ 06:34 by Samra Devi, CARMINE) Bladder mass CVA (cerebral vascular accident) Arthritis GERD (gastroesophageal reflux disease) Afib HTN (hypertension) (Last Reviewed 02/05/25 @ 06:34 by Samra Devi, CARMINE) Hx of hand surgery Hx of hernia repair Most Recent Vital Signs Temperature 37.1 C 03/06/25 17:37 Temperature Source Oral 03/06/25 12:24 Pulse 90 03/06/25 17:37 Pulse Rhythm Regular 03/06/25 17:37 Pulse 101 H 03/06/25 17:16 Respiratory Rate 18 03/06/25 17:37 Respiratory Effort Normal, Non-Labored 03/06/25 17:37 Respiratory Depth Normal 03/06/25 17:37 Respiratory Pattern Normal 03/06/25 17:37 Blood Pressure 116/87 03/06/25 17:37 Blood Pressure Mean 81 03/06/25 17:16 Blood Pressure Position Sitting 03/06/25 12:24 Pulse Oximetry 98 03/06/25 17:37 Oxygen Delivery Method Room Air 03/06/25 17:37 Oxygen Flow Rate 0 03/06/25 17:37 Pain Level 0 03/06/25 18:11 Allergies No Known Allergies Allergy (Verified 03/06/25 12:35) IV IV Catheter Type [Left Saline Lock Antecubital] IV Catheter Gauge [Left 18 Antecubital] Diet Orders Category Date Time Status npo [Nothing Per Oral] [DIET] Nutrition 03/06/25 12:26 Active Diagnostics 03/06/25 03/06/25 Range/Units 15:45 12:50 WBC 19.26 H (4.4-10.8) 10^3/uL RBC 3.92 L (4.36-5.78) 10^6/uL Hgb 11.3 L 12.2 L (13.5-17.5) g/dL Hct 31.8 L 35.2 L (40.0-50.0) % MCV 90 (80-95) fL MCH 31.1 (27.0-33.0) pg MCHC 34.7 (32.0-36.0) % RDW 13.2 (11.8-14.1) % Plt Count 270 (130-400) 10^3/uL MPV 10.2 (8.0-11.0) fL Immature Gran % 0.7 % Neutrophils % 84.9 % Lymphocytes % 8.7 % Monocytes % 5.1 % Eosinophils % 0.2 % Basophils % 0.4 % Nucleated RBC % 0.0 (0.0-0.3) % Absolute Neutrophils 16.35 H (1.2-6.7) 10^3/uL Absolute Lymphocytes 1.68 (1.2-3.4) 10^3/uL Absolute Monocytes 0.98 H (0.1-0.8) 10^3/uL Absolute Eosinophils 0.04 (0.0-0.7) 10^3/uL Absolute Basophils 0.08 (0.0-0.2) 10^3/uL Sodium 142 (136-145) mmol/L Potassium 4.0 (3.5-5.1) mmol/L Chloride 107 (98-107) mmol/L Carbon Dioxide 24.8 (20.0-31.0) mmol/L Anion Gap 10.2 (3-11) mmol/L BUN 29 H (9-23) mg/dL Creatinine 0.91 (0.73-1.18) mg/dL Est GFR (CKD-EPI 2020) 85.22 (mL/min/1.73m2) Glucose 136 H (74-106) mg/dL Calcium 8.7 (8.3-10.6) mg/dL Magnesium 1.8 (1.6-2.6) mg/dL Total Bilirubin 0.6 (0.2-1.2) mg/dL AST 16 (<34) U/L ALT 20 (10-49) U/L Alkaline Phosphatase 80 (46-116) U/L Total Protein 5.8 (5.7-8.2) g/dL Albumin 3.6 (3.2-5.0) g/dL Ethyl Alcohol < 3.0 (<3) mg/dL ABO/Rh B Positive Antibody Screen NEGATIVE Intake and Output - 24 Hour Total 03/06/25 12:21 thru 03/06/25 18:27 Intake Total 560 Balance 560 Weight 76.748 kg Intake: IV 560 Other: Urine Appearance Clear Stool Size Moderate Stool Characteristics Soft Formed Emesis Description None Falls Risk Assessment History of Falls No History 03/06/25 17:37 Contributing Factors Unstable 03/06/25 17:37 Ambulatory Aids Independent 03/06/25 17:37 Tubes/Lines None 03/06/25 17:37 Gait Evaluation No gait disturbance 03/06/25 17:37 Cognition No cognitive impairment 03/06/25 17:37 Fall Total Score 3 03/06/25 17:37 Level of Risk Standard/Low Risk 03/06/25 17:37 Problems (Last Reviewed 02/05/25 @ 06:34 by Samra Devi RN) Normocytic anemia (Acute) GI bleed (Chronic) Hematemesis (Acute) Attestation Statement: By documenting the first initial, last name, and credentials of the reporting nurse below, both parties acknowledge that all relevant information regarding the patient handoff has been communicated, and that all questions have been addressed to ensure continuity and safety of care. Additional Patient Information/Comments: Paged at [phone] and report called at [phone]. 18 G Camelia RAY. NPO. Report Received From: Lashawn Avila ED RN
--- NOTE | 2025-03-06 20:01 | HPE_ITS ---
Date of service: 03/06/25 Time of Service: 19:00 Assessment and Plan Assessment and plan (1) GI bleed: Status: Chronic Assessment and plan: NPO IV PPI (Pantoprazole 40 mg BID - rec'd 80 mg in ED) Recieved Human prothrombin cmpx 1500 units in ED MIVF NS 125 ml/h Trend CBC q6 hours Monitor for recurrent hematemesis or melena Surgery consult if bleeding recurs or hemoglobin continues to decline No emergent endoscopy indicated at this time Hemocult stool CTA c/a/p pending (2) Syncope: Status: Chronic Assessment and plan: * Likely secondary to hypovolemia/vasovagal episode related to GI bleed * No features concerning for seizure * Telemetry monitoring * Orthostatic vitals when appropriate (3) Normocytic anemia: Status: Acute Assessment and plan: Status: Acute * Likely secondary to acute blood loss * No thrombocytopenia Plan: * Serial hemoglobin monitoring * Transfusion if clinically indicated (4) Hematemesis: Status: Acute Assessment and plan: See above (5) Urothelial carcinoma of bladder: Status: Chronic Assessment and plan: Recent treatment 01/2025 Discharge Planning Discharge Plannin/17 History of Present Illness Narrative: The patient is a 59-year-old male with a history of atrial fibrillation on apixaban, prior CVA, GERD, hypertension, and urothelial carcinoma of the bladder who presents with hematemesis following a syncopal episode. Earlier this morning while working on a lift, the patient developed dizziness and lightheadedness, followed by a near-syncopal episode and subsequent loss of consciousness. Upon awakening, he noted vomiting with red-colored emesis, which he initially attributed to a red velvet muffin consumed earlier. EMS was called, but the patient declined transport and returned home. Later at home, he experienced another episode of hematemesis, described as approximately one cup of bright red blood, associated with diaphoresis but no abdominal pain or nausea. He denies melena, hematochezia, chest pain, shortness of breath, or persistent lightheadedness. No tongue biting or bowel/bladder incontinence occurred, and he has no prior seizure history. He reports no prior history of GI bleeding, no NSAID use, and no current alcohol use. He admits to remote alcohol use, however states it was not heavy. His last episode of vomiting occurred around 11:30 AM. He is chronically anticoagulated with Eliquis for atrial fibrillation. Laboratory Studies Complete Blood Count (03/06/25 12:50): * WBC: 19.26 K/?L * Hemoglobin: 12.2 g/dL 11.3 g/dL (down-trending) * Hematocrit: 35.2% * RBC: 3.92 M/?L * MCV: 90 fL (normocytic) * Platelets: 270 K/?L (normal) Differential: * Neutrophils: 84.9% * Lymphocytes: 8.7% * Monocytes: 5.1% Comprehensive Metabolic Panel: * BUN: Elevated (concerning for upper GI bleed) * Creatinine: Normal (no MATILDA) * Electrolytes: No acute abnormalities * Magnesium: Normal * Ethanol level: Undetectable Imaging / Diagnostics Electrocardiogram (EKG): * Normal sinus rhythm * Rate ~90 bpm * Narrow QRS complexes * Left axis deviation * Low voltage in left chest leads * No acute ischemic changes * No prior EKG available for comparison Imaging: * No radiographic imaging obtained during this ED visit Medication in ED: * IV PPI (Pantoprazole 40 mg BID - rec'd 80 mg in ED) * Recieved Human prothrombin cmpx 1500 units in ED * Normal Saline 500 ml bolus * Ondansetron 4 mg IV Vital signs stable throughout ED stay. Placed on observation status on the medical floor for further testing and treatment. Patient is a full code. Review of Systems Narrative: Constitutional: Denies fever, chills, fatigue, weakness ENT: Denies dizziness Cardiovascular: Denies chest pain, dyspnea Respiratory: Denies shortness of breath Gastrointestinal: Denies abdominal pain, nausea, vomiting at present; reports hematemesis prior to arrival Genitourinary: Denies dysuria or hematuria Neurologic: Denies focal weakness, dizziness Endocrine: Denies fatigue PFSH All Active Problems (Updated 03/06/25 @ 20:11 by Carolyn Cartagena NP) Syncope (Chronic) Normocytic anemia (Acute) GI bleed (Chronic) Hematemesis (Acute) Urothelial carcinoma of bladder (Chronic) Kvng hematuria (Acute) Medical History (Updated 03/06/25 @ 20:11 by Carolyn Cartagena NP) Bladder mass CVA (cerebral vascular accident) Occipital Stroke per x3 2020- Per states this was r/t to his afib and f/u cardiology...now f/u with PCP Viviana Lindsey Arthritis GERD (gastroesophageal reflux disease) Afib HTN (hypertension) Surgical History Hx of hand surgery local Hx of hernia repair at Social History Smoking/Tobacco Use Status: Former Tobacco Use Quit Date: 03/22/15 Smoking risk assessment performed?: Yes Alcohol Intake: former Drug use: Daily Substance use type: marijuana Details: vaping cannabis. Housing: house Do you feel safe at home: Yes Do you feel safe in your relationship?: Yes Additional Social history: unable to assess privately Meds Allergies and Home Medications Allergies Allergy/AdvReac Type Severity Reaction Status Date / Time No Known Allergies Allergy Verified 03/06/25 12:35 Home Medications ?Medication ?Instructions ?Recorded ?Confirmed ?Type apixaban 5 mg tablet (Eliquis) 5 mg PO BID 09/05/24 History aspirin 81 mg tablet 81 mg PO DAILY 09/05/2402/19 History famotidine 40 mg tablet 40 mg PO DAILY 09/05/2402/19 History metoprolol tartrate 25 mg tablet 25 mg PO BID 09/05/24 03/06/25 History finasteride 5 mg tablet (Proscar) 5 mg PO DAILY hematu doreen #7 tabs 02/09/25 03/06/25 Rx Exam Narrative Exam Narrative: General: Well-appearing male, no acute distress, speaking in full sentences HEENT: Normocephalic, atraumatic; EOMI; no scleral icterus Neck: Trachea midline Cardiovascular: Regular rate and rhythm, well-perfused extremities Respiratory: Clear to auscultation bilaterally, non-labored respirations Abdomen: Soft, nondistended, nontender; no rebound or guarding Extremities: No edema; moves all extremities spontaneously Skin: Warm, normal turgor, no rash Neurologic: Alert and oriented, no focal deficits Psychiatric: Appropriate mood and affect Results Labs 03/06/25 15:45 03/06/25 12:50 Labs: Laboratory Results - last 24 hr 03/06/25 03/06/25 12:50 15:45 WBC 19.26 H RBC 3.92 L Hgb 12.2 L 11.3 L Hct 35.2 L 31.8 L MCV 90 MCH 31.1 MCHC 34.7 RDW 13.2 Plt Count 270 MPV 10.2 Immature Gran % 0.7 Neutrophils % 84.9 Lymphocytes % 8.7 Monocytes % 5.1 Eosinophils % 0.2 Basophils % 0.4 Nucleated RBC % 0.0 Absolute Neutrophils 16.35 H Absolute Lymphocytes 1.68 Absolute Monocytes 0.98 H Absolute Eosinophils 0.04 Absolute Basophils 0.08 Sodium 142 Potassium 4.0 Chloride 107 Carbon Dioxide 24.8 Anion Gap 10.2 BUN 29 H Creatinine 0.91 Est GFR (CKD-EPI 2020) 85.22 Glucose 136 H Calcium 8.7 Magnesium 1.8 Total Bilirubin 0.6 AST 16 ALT 20 Alkaline Phosphatase 80 Total Protein 5.8 Albumin 3.6 Ethyl Alcohol < 3.0 ABO/Rh B Positive Antibody Screen NEGATIVE Last Vital Signs Temp 37.7 C H 03/06/25 19:55 Pulse 99 H 03/06/25 19:55 Resp 18 03/06/25 17:37 BP 126/86 03/06/25 19:55 Pulse Ox 95 03/06/25 19:55 VTE Prohylaxis Risk Level: Low Risk Contraindications: Active bleed/high bleed risk Prophylaxis: Patient ambulatory Time Spent Time spent with Patient: 40-54 minutes Time was spent: preparing to see the patient(eg.review tests), obtaining and/or reviewing separately otained hiistory, ordering medications,tests, procedures, referring, communicating with other health home care assistant, indepentently interpreting results, counseling the patient and care coordination
[2025-03-06 20:31] LABS: HCT 31.9 % (40.0-50.0); HGB 11.0 g/dL (13.5-17.5)
[2025-03-06] MEDS: Omnipaque 350 MG/ML 100 ML BTL IJ (21:29)
[2025-03-06] MEDS: Normal Saline - Diluent 50 ML VIAL IJ (21:29)
[2025-03-06] MEDS: Normal Saline Flush 10 ML SYR IVP ×2 (21:29→22:04)
[2025-03-06] MEDS: Pantoprazole 40 MG VIAL IVP (22:03)
--- NOTE | 2025-03-06 22:42 | DI.VRAD_ITS ---
PROCEDURE INFORMATION: Exam: CTA Chest With Contrast CTA Abdomen and Pelvis With Contrast Exam date and time: 03/06/2025 9:19 PM Age: 59 years old Clinical indication: Other: Gi bleed; PT sts vomiting blood and passed out TECHNIQUE: Imaging protocol: Computed tomographic angiography of the chest with contrast. Exam focused on the arteries. Computed tomographic angiography of the abdomen and pelvis with contrast. Exam focused on the arteries. 3D rendering (Not supervised by radiologist): MIP and/or 3D reconstructed images were created by the technologist. Contrast material: OMNI 350; Contrast volume: 100 ml; Contrast route: INTRAVENOUS (IV); COMPARISON: CT ABDOMEN PELVIS WO/W 09/18/2024 8:25 AM FINDINGS: VASCULATURE: Pulmonary arteries: Normal. No pulmonary emboli. Aorta: No aortic aneurysm. No aortic dissection. Celiac and mesenteric arteries: No occlusion or significant stenosis. Renal arteries: No occlusion or significant stenosis. Right iliac arteries: No occlusion or significant stenosis. Left iliac arteries: No occlusion or significant stenosis. Thyroid: No thyroid lesions. No thyroid enlargement. CHEST: Trachea: The central airways clear. Lungs: No focal consolidation or other acute appearing pulmonary opacity. Pleural spaces: Unremarkable. No pneumothorax. No pleural effusion. Heart: No cardiomegaly or pericardial effusion. ABDOMEN AND PELVIS: Liver: The liver is unremarkable. Gallbladder and biliary ducts: No gallstones. Nondistended. No wall thickening. Pancreas: The pancreas is unremarkable. Spleen: No splenomegaly. No lesions. Adrenal glands: The adrenal glands are unremarkable. Kidneys and ureters: Stable renal cysts. Stomach and bowel: Moderate stool throughout the colon and rectum. There is no evidence of gastrointestinal bleed. Appendix: Normal appendix. Intraperitoneal space: Unremarkable. No free air. No significant fluid collection. Urinary bladder: There is diffuse bladder wall thickening, this may be secondary to incomplete distension, however, cystitis can have a similar appearance. Correlate clinically. Reproductive: Unremarkable as visualized. Lymph nodes: No axillary adenopathy. Bones/joints: No acute osseous abnormality. Soft tissues: Soft tissues are unremarkable as visualized. Other findings: Patent vessels without evidence of aneurysm, dissection, occlusion or critical stenosis. IMPRESSION: 1. There is diffuse bladder wall thickening, this may be secondary to incomplete distension, however, cystitis can have a similar appearance. Correlate clinically. 2. There is no evidence of gastrointestinal bleed. Dictated and Authenticated by: Whitney Burks MD. Orderin Mitzi Leon MD
[2025-03-07 01:11] VITALS: BP 121/94; PULSE 92; RESP 16; TEMP 37; O2SAT 95
[2025-03-07 02:13] LABS: Abs Immature Grans 0.05 10^3/uL (0.0-0.06); HCT 32.8 % (40.0-50.0); HGB 11.5 g/dL (13.5-17.5); Immature Grans % 0.4 %; MCH 31.8 pg (27.0-33.0); MCHC 35.1 % (32.0-36.0); MCV 91 fL (80-95); MPV 10.2 fL (8.0-11.0); Platelet Count 219 10^3/uL (130-400); RBC 3.62 10^6/uL (4.36-5.78); RDW 13.5 % (11.8-14.1); RDW-SD 44.7 fL; WBC 11.55 10^3/uL (4.4-10.8)
[2025-03-07 04:47] VITALS: BP 136/89; PULSE 92; TEMP 36.7; O2SAT 97
[2025-03-07] MEDS: Normal Saline 1,000 ML 125 ML IV (07:01)
[2025-03-07 07:19] LABS: Abs Immature Grans 0.06 10^3/uL (0.0-0.06); HCT 33.3 % (40.0-50.0); HGB 11.6 g/dL (13.5-17.5); Immature Grans % 0.5 %; MCH 31.5 pg (27.0-33.0); MCHC 34.8 % (32.0-36.0); MCV 91 fL (80-95); MPV 10.6 fL (8.0-11.0); Platelet Count 226 10^3/uL (130-400); RBC 3.68 10^6/uL (4.36-5.78); RDW 13.5 % (11.8-14.1); RDW-SD 44.8 fL; WBC 11.62 10^3/uL (4.4-10.8)
--- NOTE | 2025-03-07 07:19 | W.PM.PROGNOT ---
Date of Service Date of service: 03/07/25 Time of Service: 07:19 Assessment and Plan Assessment and plan (1) GI bleed: Status: Chronic Assessment and plan: Patient is a 59-year-old male who presented to the ED after a syncopal episode and with concern for hematemesis. He notes a history of prior syncopal episodes with vomiting. He was admitted to the hospitalist service overnight given GI bleed. He notes he is doing well this morning and denies ongoing hematemesis or nausea. He does endorse bloody bowel movements overnight. This morning he remains hemodynamically stable and abdomen is soft and non-tender. His labs overnight remain stable as well. Melena is likely in the setting of previous bleeding. Will continue to monitor closely bowel movements. If labs stable this morning can advance diet slowly as tolerated. Continue protonix. If no concern for ongoing bleeding while inpatient, an outpatient EGD and colonoscopy were discussed with him. (2) Hematemesis: Status: Acute (3) Syncope: Status: Chronic Subjective Subjective Interval history since last seen: He states he is doing well this morning. He denies any nausea, vomiting, fevers, chills or abdominal pain overnight. He does endorse some bloody bowel movements overnight. He denies any further this morning. Denies lightheadedness or dizziness. Exam Narrative Exam Narrative: General: Well appearing, no acute distress. Skin: Good turgor, no visible rashes or lesion HEENT: Normocephalic, atraumatic CV: Regular rate Lungs: Bilateral equal chest rise, non-labored breathing Abdomen: Soft, non-tender, non-distended Extremities: Warm, well perfused Neurologic: No focal deficits Psychiatric: Alert and oriented, normal mood and affect Objective Last Vital Signs Temp 36.7 C 03/07/25 04:47 Pulse 92 H 03/07/25 04:47 Resp 16 03/07/25 01:11 BP 136/89 03/07/25 04:47 Pulse Ox 97 03/07/25 04:47 Laboratory Results - last 24 hr 03/06/25 03/06/25 03/06/25 12:50 15:45 20:24 WBC 19.26 H RBC 3.92 L Hgb 12.2 L 11.3 L 11.0 L Hct 35.2 L 31.8 L 31.9 L MCV 90 MCH 31.1 MCHC 34.7 RDW 13.2 Plt Count 270 MPV 10.2 Immature Gran % 0.7 Neutrophils % 84.9 Lymphocytes % 8.7 Monocytes % 5.1 Eosinophils % 0.2 Basophils % 0.4 Nucleated RBC % 0.0 Absolute Neutrophils 16.35 H Absolute Lymphocytes 1.68 Absolute Monocytes 0.98 H Absolute Eosinophils 0.04 Absolute Basophils 0.08 Sodium 142 Potassium 4.0 Chloride 107 Carbon Dioxide 24.8 Anion Gap 10.2 BUN 29 H Creatinine 0.91 Est GFR (CKD-EPI 2020) 85.22 Glucose 136 H Calcium 8.7 Magnesium 1.8 Total Bilirubin 0.6 AST 16 ALT 20 Alkaline Phosphatase 80 Total Protein 5.8 Albumin 3.6 Ethyl Alcohol < 3.0 ABO/Rh B Positive Antibody Screen NEGATIVE 03/07/25 02:00 WBC 11.55 H RBC 3.62 L Hgb 11.5 L Hct 32.8 L MCV 91 MCH 31.8 MCHC 35.1 RDW 13.5 Plt Count 219 MPV 10.2 Immature Gran % 0.4 Neutrophils % 72.4 Lymphocytes % 18.8 Monocytes % 7.7 Eosinophils % 0.4 Basophils % 0.3 Nucleated RBC % 0.0 Absolute Neutrophils 8.36 H Absolute Lymphocytes 2.17 Absolute Monocytes 0.89 H Absolute Eosinophils 0.05 Absolute Basophils 0.03 Sodium Potassium Chloride Carbon Dioxide Anion Gap BUN Creatinine Est GFR (CKD-EPI 2020) Glucose Calcium Magnesium Total Bilirubin AST ALT Alkaline Phosphatase Total Protein Albumin Ethyl Alcohol ABO/Rh Antibody Screen VTE Prohylaxis Risk Level: Low Risk Contraindications: Active bleed/high bleed risk Prophylaxis: Patient ambulatory Time Spent with Patient Time Spent with Patient: <25 minutes Time was spent: preparing to see the patient(eg.review tests), obtaining and/or reviewing separately otained hiistory and counseling the patient
[2025-03-07 07:51] LABS: Anion Gap 11.1 mmol/L (3-11); BUN 29 mg/dL (9-23); CO2 23.9 mmol/L (20.0-31.0); Calcium 8.8 mg/dL (8.3-10.6); Chloride 109 mmol/L (98-107); Glucose 97 mg/dL (74-106); Potassium 3.9 mmol/L (3.5-5.1); Sodium 144 mmol/L (136-145)
[2025-03-07 07:53] LABS: Magnesium 2.0 mg/dL (1.6-2.6)
[2025-03-07 08:07] VITALS: BP 113/88; PULSE 97; RESP 16; TEMP 36.8; O2SAT 95
[2025-03-07] MEDS: Normal Saline Flush 10 ML SYR IVP (09:12)
[2025-03-07] MEDS: Pantoprazole 40 MG VIAL IVP (09:12)
--- NOTE | 2025-03-07 09:22 | PDOC.CMIN ---
Date of service: 03/07/25 Time of Service: 09:22 Care Management Initial Assmt Initial Assessment Reason for Hospitalization: GI Bleed Functional Status/Living Situation Town of Residence: [facility] Resides with: Spouse (Boyd) Medications Medication Management: No Issues/Barriers identified Advance Directives Advance Directives: Do you have an Advance Directive: N 10/02/24, 08:56 AD On File at [facility]: N 09/19/24, 10:10 Date Asked 03/06/25 03/06/25, 12:27 AD Date Reviewed COLST On File at [facility] COLST Date Scanned Code Status Resuscitation Status Full Code Portal Pt does not currently have a portal and education provided: Yes Insurance Coverage/Financial Issues Insurance: MVP Care Team Visit Care Team Role Provider Type Carolyn Cartagena NP MD [facility] STAFF PHYSICIAN Viviana Lindsey Primary Care Provider NURSE PRACTITIONER Fran Morocho MD Emergency Provider [facility] STAFF PHYSICIAN Chris Keita MD Admit Provider [facility] STAFF PHYSICIAN Attending Provider Discharge Potential Discharge Needs: PCP F/U Appt and Surgical F/U Appt Anticipated Barriers to Discharge: None Identified Patient/Family Education Needs: Review discharge instructions, discuss Ask Me Three Transportation: Private vehicle Plan: Anticipate Jared will be discharged home with no new services when medically cleared. He will follow up with his community providers and plan of care and transport with family. CM will followw and continue to assess for discharge needs. Social Determinants of Health Screening Social Determinants of health last assessed in clinic: 03/06/25 Will the Patient Participate in the Screening?: Yes Do you worry about having a steady place to live?: no Problems where you live: no known problems In the past 12 months, have you had to go without electric, gas, oil or water in your home?: no Has lack of transportation kept you from medical appointments or from doing things needed for daily living?: no Has anyone in your life made you feel unsafe or unsupported?: no How hard is it for you to pay for the very basics like food, housing, medical care, and heating? Would you say it is:: Not hard at all Do you want help finding or keeping work or a job?: I do not need or want help If for any reason you need help with day-to-day activities such as bathing, preparing meals, shopping, managing finances, etc., do you get the help you need?: I don?t need any help How often do you feel lonely or isolated from those around you?: Never Do you speak a language other than Danish at home?: No Does the patient want assistance with any of the above?: No PFSH All Active Problems (Updated 03/06/25 @ 20:11 by Carolyn Cartagena NP) Syncope (Chronic) Normocytic anemia (Acute) GI bleed (Chronic) Hematemesis (Acute) Urothelial carcinoma of bladder (Chronic) Kvng hematuria (Acute) Medical History (Updated 03/06/25 @ 20:11 by Carolyn Cartagena NP) Bladder mass CVA (cerebral vascular accident) Occipital Stroke per x3 2020- Per states this was r/t to his afib and f/u cardiology...now f/u with PCP Viviana Lindsey Arthritis GERD (gastroesophageal reflux disease) Afib HTN (hypertension) Surgical History Hx of hand surgery local Hx of hernia repair at Social History Smoking/Tobacco Use Status: Former Tobacco Use Quit Date: 03/22/15 Smoking risk assessment performed?: Yes Alcohol Intake: former Drug use: Daily Substance use type: marijuana Details: vaping cannabis. Housing: house Do you feel safe at home: Yes Do you feel safe in your relationship?: Yes Additional Social history: unable to assess privately
[2025-03-07 11:17] VITALS: BP 137/96; PULSE 94; RESP 18; TEMP 37.2; O2SAT 95
[2025-03-07 11:47] LABS: HCT 31.7 % (40.0-50.0); HGB 10.9 g/dL (13.5-17.5)
--- NOTE | 2025-03-07 14:11 | DSE_ITS ---
Date of service: 03/07/25 Time of Service: 14:11 DS: Diagnosis Discharge Diagnosis (1) GI bleed: Status: Chronic (2) Hematemesis: Status: Acute (3) Syncope: Status: Chronic Discharge Plan Disposition Patient Disposition: Home Anticipated Discharge Date/Time: 03/07/25 14:15 Condition: Good Discharge Details Reason For Visit: GI bleed Admit Date/Time: 03/06/25 16:13 Admit Provider: Chris Keita Attending Provider: Chris Keita Primary Care Provider: Viviana Lindsey Hospital Course Hospital Course: This is a 59-year-old male with a history of atrial fibrillation on apixaban, prior cerebrovascular accident, GERD, hypertension, and urothelial carcinoma of the bladder who presented with syncope and hematemesis. Initial evaluation demonstrated down-trending hemoglobin with elevated BUN, consistent with an upper GI bleed. He received IV proton pump inhibitor therapy and human prothrombin complex concentrate in the emergency department. He remained hemodynamically stable without recurrent hematemesis or melena during hospitalization. He was evaluated by surgery. No emergent endoscopy was indicated. His anemia stabilized with serial hemoglobin monitoring, and no transfusion was required. Syncope was felt to be secondary to hypovolemia and vasovagal response in the setting of acute blood loss. Telemetry monitoring did not reveal arrhythmia or ischemia. Anticoagulation / Antiplatelet Management Given the patient?s history of atrial fibrillation with prior stroke, the risk of thromboembolic events (including recurrent CVA) was weighed against the risk of recurrent gastrointestinal bleeding. * Aspirin was discontinued due to increased bleeding risk and lack of clear indication for dual antithrombotic therapy. * Apixaban was continued, as the benefit of stroke prevention was felt to o utweigh the risk of recurrent bleeding following stabilization and absence of ongoing hemorrhage. This decision was discussed with the patient, including risks and benefits, and he is in agreement with the plan. Discharge Medications Continue: * Apixaban 5 mg PO BID * Metoprolol tartrate 25 mg PO BID Stop: * Aspirin 81 mg PO daily * Famotidine 40 mg PO daily New: * Start Pantoprazole 40 mg PO BID Discharge Condition Stable. Hemodynamically stable without recurrent bleeding. Ambulating independently. Recommendations for Follow Up Recommended tests to be ordered by follow up provider: CBC in 3 days - spoke with Treva Triage nurse at [facility] regarding this. Home Meds and New Rx's Prescriptions: New pantoprazole [Protonix] 40 mg tablet,delayed release (DR/EC) 40 mg PO DAILY Qty: 30 0RF Continued metoprolol tartrate 25 mg tablet 25 mg PO BID Discontinued finasteride [Proscar] 5 mg tablet 5 mg PO DAILY Qty: 7 0RF famotidine 40 mg tablet 40 mg PO DAILY aspirin 81 mg tablet 81 mg PO DAILY No Action Eliquis 5 mg tablet 5 mg PO BID Discharge Instructions Additional Instructions: You were admitted to the hospital after vomiting blood and having a fainting episode. Testing showed a gastrointestinal bleed that caused some anemia. You were treated with medications to reduce stomach acid and were closely monitored. Your condition stabilized, and there was no further bleeding. Medications STOP taking: * Aspirin 81 mg * Famotidine 40 mg This medication increases the risk of bleeding and should not be restarted unless directed by your provider. CONTINUE taking: * Apixaban (Eliquis) 5 mg twice daily This medication helps prevent stroke related to atrial fibrillation. The benefits outweigh the risks at this time. * Metoprolol 25 mg twice daily NEW medication: * Pantoprazole 40 mg twice daily This reduces stomach acid and helps prevent further bleeding. Do not take NSAIDs (such as ibuprofen, naproxen, Advil, Aleve) unless your provider specifically tells you to. Activity * Resume normal activity as tolerated * Avoid heavy lifting or strenuous activity for several days * Stand up slowly to prevent dizziness Diet * Resume a regular diet as tolerated * Avoid alcohol * Avoid foods that worsen reflux (spicy, acidic, greasy foods) When to Seek Immediate Medical Care (Call 911 or go to the ED) * Vomiting blood or material that looks like coffee grounds * Black or tarry stools * Bright red blood in stool * Dizziness, fainting, or weakness * Chest pain or shortness of breath Follow-Up Appointments * Primary Care Provider: within 1 week * Cardiology: to review atrial fibrillation and blood thinner use * Gastroenterology (local surgery) for further evaluation of GI bleeding Important Information You are taking a blood thinner (apixaban). While this increases bleeding risk, it is important to prevent stroke. Do not stop or change this medication unless instructed by your provider. If you have questions or concerns, contact your primary care provider. Stand Alone Forms: Portal Information, Nursing Discharge Form Referrals: Caryl Gonzalez MD [ [facility] STAFF PHYSICIAN, Cardiology] Referral Note: Patient with atrial fibrillation and prior stroke, on apixaban and aspirin, admitted with GI bleeding and a history of newly diagnosed bladder cancer; currently managed by his PCP and requesting cardiology consultation for ongoing cardiology follow-up. Lorrie Scruggs MD [ [facility] STAFF PHYSICIAN, Surgery] Referral Note: GI bleed follow up - endoscopy outpatient Viviana Lindsey [Primary Care Provider, Medicine] Referral Note: Your PCP will reach out to you, if you do not hear from them please call. 1 week post inpatient for GI Bleed and syncope. Recommend CBC in 3 days. Activity:: Activity as Tolerated Equipment/Supplies:: No Equipment Needed Diet:: As Tolerated Discharge Orders Discharge Orders: Discharge Order (Routine); Ordered 03/07/25 Ordered By: Carolyn Cartagena Discharge Data Discharge Date/Time-TO BE ENTERED AT DEPARTURE: 03/07/25 15:13 DS: Summary Time Spent with Patient providing and/or coordinating discharge services: Greater than 30 minutes Status at Discharge Functional status at discharge: independent ambulation Overall status at discharge: patient is back to baseline Mental Status: mental status grossly normal Speech and Movement: speech and movement normal Mood: congruent mood Affect: normal affect Exam Narrative Exam Narrative: General: Well-appearing male, no acute distress, speaking in full sentences HEENT: Normocephalic, atraumatic; EOMI; no scleral icterus Neck: Trachea midline Cardiovascular: Regular rate and rhythm, well-perfused extremities Respiratory: Clear to auscultation bilaterally, non-labored respirations Abdomen: Soft, nondistended, nontender; no rebound or guarding Extremities: No edema; moves all extremities spontaneously Skin: Warm, normal turgor, no rash Neurologic: Alert and oriented, no focal deficits Psychiatric: Appropriate mood and affect Psych Mental Status: mental status grossly normal Speech and Movement: speech and movement normal Mood: congruent mood Affect: normal affect DS: Data Vitals/I&O Vitals and I&O: Vital Signs Temperature 37.2 C 03/07/25 11:17 Temperature Source Tympanic 03/07/25 11:17 Pulse 94 H 03/07/25 11:17 Pulse Rhythm Regular 03/06/25 17:37 Pulse 101 H 03/06/25 17:16 Respiratory Rate 18 03/07/25 11:17 Respiratory Effort Normal, Non-Labored 03/06/25 17:37 Respiratory Depth Normal 03/06/25 17:37 Respiratory Pattern Normal 03/06/25 17:37 Blood Pressure 137/96 H 03/07/25 11:17 Blood Pressure Mean 109 03/07/25 11:17 Blood Pressure Position Sitting 03/06/25 12:24 Pulse Oximetry 95 03/07/25 11:17 Oxygen Delivery Method Room Air 03/07/25 11:17 Oxygen Flow Rate 0 03/07/25 11:17 Pain Level 0 03/06/25 18:11 Comment 118/85 - Lying Bp, HR 90 115/86 - Standing Bp, HR 124 03/06/25 22:11 Intake & Output 03/06/25 03/07/25 03/07/25 23:59 11:59 23:59 Intake Total 560 / 560 Balance 560 / 560 Weight 76.748 kg Intake: IV 560 / 560 Other: Urine Color Yellow Yellow Straw Urine Appearance Clear Clear Urine Odor None Comment voids independently Stool Size Moderate Moderate Stool Characteristics Soft Liquid Formed Bloody Emesis Description None Data Completed and Pending Pending Labs at Discharge: 03/06/25 03/06/25 03/06/25 12:50 15:45 20:24 WBC 19.26 H RBC 3.92 L Hgb 12.2 L 11.3 L 11.0 L Hct 35.2 L 31.8 L 31.9 L MCV 90 MCH 31.1 MCHC 34.7 RDW 13.2 Plt Count 270 MPV 10.2 Immature Gran % 0.7 Neutrophils % 84.9 Lymphocytes % 8.7 Monocytes % 5.1 Eosinophils % 0.2 Basophils % 0.4 Nucleated RBC % 0.0 Absolute Neutrophils 16.35 H Absolute Lymphocytes 1.68 Absolute Monocytes 0.98 H Absolute Eosinophils 0.04 Absolute Basophils 0.08 Sodium 142 Potassium 4.0 Chloride 107 Carbon Dioxide 24.8 Anion Gap 10.2 BUN 29 H Creatinine 0.91 Est GFR (CKD-EPI 2020) 85.22 Glucose 136 H Calcium 8.7 Magnesium 1.8 Total Bilirubin 0.6 AST 16 ALT 20 Alkaline Phosphatase 80 Total Protein 5.8 Albumin 3.6 Ethyl Alcohol < 3.0 ABO/Rh B Positive Antibody Screen NEGATIVE 03/07/25 03/07/25 03/07/25 02:00 06:18 11:43 WBC 11.55 H 11.62 H RBC 3.62 L 3.68 L Hgb 11.5 L 11.6 L 10.9 L Hct 32.8 L 33.3 L 31.7 L MCV 91 91 MCH 31.8 31.5 MCHC 35.1 34.8 RDW 13.5 13.5 Plt Count 219 226 MPV 10.2 10.6 Immature Gran % 0.4 0.5 Neutrophils % 72.4 78.3 Lymphocytes % 18.8 14.5 Monocytes % 7.7 6.1 Eosinophils % 0.4 0.3 Basophils % 0.3 0.3 Nucleated RBC % 0.0 0.0 Absolute Neutrophils 8.36 H 9.10 H Absolute Lymphocytes 2.17 1.68 Absolute Monocytes 0.89 H 0.71 Absolute Eosinophils 0.05 0.03 Absolute Basophils 0.03 0.03 Sodium 144 Potassium 3.9 Chloride 109 H Carbon Dioxide 23.9 Anion Gap 11.1 H BUN 29 H Creatinine 0.74 Est GFR (CKD-EPI 2020) 108.19 Glucose 97 Calcium 8.8 Magnesium 2.0 Total Bilirubin AST ALT Alkaline Phosphatase Total Protein Albumin Ethyl Alcohol ABO/Rh Antibody Screen PFSH All Active Problems (Updated 03/06/25 @ 20:11 by Carolyn Cartagena NP) Syncope (Chronic) Normocytic anemia (Acute) GI bleed (Chronic) Hematemesis (Acute) Urothelial carcinoma of bladder (Chronic) Kvng hematuria (Acute) Medical History (Updated 03/06/25 @ 20:11 by Carolyn Cartagena NP) Bladder mass CVA (cerebral vascular accident) Occipital Stroke per x3 2020- Per states this was r/t to his afib and f/u cardiology...now f/u with PCP Viviana Lindsey Arthritis GERD (gastroesophageal reflux disease) Afib HTN (hypertension) Surgical History Hx of hand surgery local Hx of hernia repair at Social History Smoking/Tobacco Use Status: Former Tobacco Use Quit Date: 03/22/15 Smoking risk assessment performed?: Yes Alcohol Intake: former Drug use: Daily Substance use type: marijuana Details: vaping cannabis. Housing: house Do you feel safe at home: Yes Do you feel safe in your relationship?: Yes Additional Social history: unable to assess privately Time Spent with Patient Time Spent with Patient: 45-69 minutes Time was spent: preparing to see the patient(eg.review tests), ordering medications,tests, procedures, referring, communicating with other health customer care representative, indepentently interpreting results, counseling the patient and care coordination
--- NOTE | 2025-03-07 17:16 | CMPROGNOTE_ITS ---
Date of service: 03/07/25 Time of Service: 17:16 Care Management Progress Note Progress Note Text Progress Note Text: Jared was admitted after a near syncopal episode followed by a bout of bloody emesis. He denies excessive alcohol consumption and has not had any melena or lower GI symptoms. Jared has been taking Apixaban for atrial fibrillation. He was given human prothrombin complex concentrate to counteract the anticoagulant effects as well as an IV PPI. He remained hemodynamically stable and his H&H also stabilized without the need for transfusion. He was determined to be safe for discharge and will follow up outpatient with surgery and possibly have an endoscopy as an oputpatient at some time in the future. Jared was discharged before was able to meet with him. Social Determinants of Health Screening Social Determinants of health last assessed in clinic: 03/07/25 Will the Patient Participate in the Screening?: Yes Do you worry about having a steady place to live?: no Problems where you live: no known problems In the past 12 months, have you had to go without electric, gas, oil or water in your home?: no 1. Within the past 12 months, we worried whether our food would run out before we got money to buy more.: Never true 2. Within the past 12 months, the food we bought just didn't last and we didn't have money to get more.: Never true Has lack of transportation kept you from medical appointments or from doing things needed for daily living?: no Has anyone in your life made you feel unsafe or unsupported?: no How hard is it for you to pay for the very basics like food, housing, medical care, and heating? Would you say it is:: Not hard at all Do you want help finding or keeping work or a job?: I do not need or want help If for any reason you need help with day-to-day activities such as bathing, preparing meals, shopping, managing finances, etc., do you get the help you need?: I don?t need any help How often do you feel lonely or isolated from those around you?: Never Do you speak a language other than Cambodian at home?: No Does the patient want assistance with any of the above?: No
== END 2025-03-07 15:13 | disposition home or self-care (01) | DRG 378 ==
LOC: ER 16:04 → MS 17:41
PROVIDERS: Admitting Provider Family Medicine; Emergency Provider Emergency Medicine; PCP Nurse Practitioner Family; Responsible Provider Nurse Practitioner Family; Visit Provider Family Medicine
DX: K92.0 Hematemesis (principal); D62 Acute posthemorrhagic anemia; R55 Syncope and collapse; C67.9 Malignant neoplasm of bladder, unspecified; Z86.73 Personal history of transient ischemic attack (TIA), and cerebral infarction without residual deficits; Z79.01 Long term (current) use of anticoagulants; I48.91 Unspecified atrial fibrillation; K21.9 Gastro-esophageal reflux disease without esophagitis; I10 Essential (primary) hypertension; Z87.891 Personal history of nicotine dependence; F12.90 Cannabis use, unspecified, uncomplicated; K92.1 Melena
CPT/HCPCS: 00123; 36415; 71275; 80048; 80053; 86850; 86900; 86901; 93005; 96361; 96365; 96366; 96375; 99285; 74174; 80320; 82272; 83735; 85014; 85018; 85025; 93010; 99222; 99239; J2405; J2470; J3490; J7168

== ENCOUNTER 2025-03-09 09:53 | Observation (INO) | payer OTHER, SELFPAY ==
[2025-03-09] VITALS (72 sets, daily range): BP systolic 52–162; BP diastolic 30–99; PULSE 60–104; RESP 9–23; TEMP 36.6–37; O2SAT 92–99; BMI 24.3
--- NOTE | 2025-03-09 10:45 | RT.EKG_ITS ---
APPROVED REPORT Exam: Resting ECG Reason for Exam: lightheaded, afib hx Patient Location: E HR:81 bpm ECG Measurements Heart Rate 81 AXIS WY 174 P 45 QRSd 83 QRS -21 QT 371 T 1 QTc 430 Conclusion Sinus rhythm...normal P axis, V-rate 60- 99 Inferior infarct, old...Q >35mS, II III aVF
[2025-03-09 10:58] LABS: Abs Immature Grans 0.06 10^3/uL (0.0-0.06); HCT 29.2 % (40.0-50.0); HGB 10.3 g/dL (13.5-17.5); Immature Grans % 0.6 %; MCH 31.9 pg (27.0-33.0); MCHC 35.3 % (32.0-36.0); MCV 90 fL (80-95); MPV 10.1 fL (8.0-11.0); Platelet Count 244 10^3/uL (130-400); RBC 3.23 10^6/uL (4.36-5.78); RDW 13.5 % (11.8-14.1); RDW-SD 44.1 fL; WBC 9.93 10^3/uL (4.4-10.8)
[2025-03-09] MEDS: Pantoprazole 40 MG VIAL IVP (11:03)
[2025-03-09 11:19] LABS: INR 1.1 (0.9-1.1); Prothrombin Time 10.8 sec (9.1-11.1)
[2025-03-09 11:28] LABS: Magnesium 1.9 mg/dL (1.6-2.6)
[2025-03-09 11:30] LABS: ALT 15 U/L (10-49); AST 16 U/L (<34); Albumin 3.9 g/dL (3.2-5.0); Alkaline Phosphatase 77 U/L (46-116); Anion Gap 9.5 mmol/L (3-11); BUN 19 mg/dL (9-23); Bilirubin, Total 0.7 mg/dL (0.2-1.2); CO2 24.5 mmol/L (20.0-31.0); Calcium 8.6 mg/dL (8.3-10.6); Chloride 108 mmol/L (98-107); Glucose 115 mg/dL (74-106); Potassium 3.7 mmol/L (3.5-5.1); Sodium 142 mmol/L (136-145); Total Protein 6.3 g/dL (5.7-8.2)
[2025-03-09 11:35] LABS: Troponin I < 3 ng/L (<54)
--- NOTE | 2025-03-09 12:01 | W.PM.HP.N ---
Date of service: 03/09/25 Time of Service: 12:01 Assessment and Plan Assessment and plan (1) GI bleed: Status: Chronic Assessment and plan: After brief resuscitation, Jared was brought to the operating room where I performed emergent EGD. There was a large volume of mostly clotted blood in the stomach. Using a combination of suction and irrigation, all of this old clot was evacuated. I advanced down into the duodenum as far as the third portion, saw no evidence of any active bleeding there. Within the stomach, there is a punctate area of gastritis in the antrum, just along the incisura angularis at the posterior wall. This was cauterized. A few more areas of ulceration were found up in the gastric cardia. One of these was associated with a visible vessel. Hemoclips were deployed across the blood vessel associated with the ulcer in the cardia, and the other small areas were cauterized. He is transferred up to the intensive care unit, where I will continue proton pump inhibitor therapy, hold his apixaban, and test for Helicobacter pylori to see if that is the source of his gastritis. History of Present Illness History of Present Illness Chief Complaint: Melena Narrative: Jared is 59 years old. He comes to the emergency department today reporting large-volume melena. He had been admitted to the hospital 2 days ago after an episode of hematemesis with syncope. At that time, he had a presumed upper gastrointestinal bleed. He was started on proton pump inhibitor therapy, and hemoglobin was trended and appeared to be stable. He was discharged home with instructions and a plan for outpatient workup of the hematemesis. While at home, he was feeling okay, perhaps just a little bit weaker compared to his usual state of health. He had a few episodes of melena, which he anticipated, but had a larger volume dark black bowel movement this morning, and was feeling a little more tired than he had been over the past 24 hours. He takes apixaban for paroxysmal atrial fibrillation. In the emergency department, his hemoglobin was 10.3, which was just slightly decreased compared to his discharge. We talked about a hospital admission for a bowel prep, and both upper and lower endoscopy in the next 24 hours. While in the emergency department, he became diaphoretic and pale. He had hypotension, and repeat hemoglobin had decreased to 8.6. He was resuscitated with crystalloid, and 1 unit of emergency blood, and we moved to the operating room for emergent upper endoscopy. Review of Systems Constitutional Constitutional: Reports fatigue and Reports weakness Eyes Eyes: Reports system reviewed and no additional complaints, except as documented ENT Ears, Nose, Mouth, and Throat: Reports system reviewed and no additional complaints, except as documented Cardiovascular Cardiovascular: Denies chest pain and Reports lightheadedness Respiratory Respiratory: Denies chest congestion and Denies cough Gastrointestinal Gastrointestinal: Denies abdominal pain, Reports melena and Denies bloating Genitourinary Genitourinary: Reports system reviewed and no additional complaints, except as documented Neurologic Neurologic: Reports weakness Endocrine Endocrine: Reports fatigue Hematologic/Lymphatic Hematologic/Lymphatic: Denies easy bleeding and Reports easy bruising PFSH All Active Problems (Updated 03/09/25 @ 14:27 by SRAVANI Arora) A-fib (Chronic) Chronic anticoagulation (Acute) Syncope (Chronic) Normocytic anemia (Acute) GI bleed (Chronic) Hematemesis (Acute) Kvng hematuria (Acute) Medical History (Updated 03/09/25 @ 14:27 by SRAVANI Arora) Urothelial carcinoma of bladder Bladder mass CVA (cerebral vascular accident) Occipital Stroke per x3 2020- Per states this was r/t to his afib and f/u cardiology...now f/u with PCP Viviana Lindsey Arthritis GERD (gastroesophageal reflux disease) Afib HTN (hypertension) Surgical History Hx of hand surgery local Hx of hernia repair at Social History Smoking/Tobacco Use Status: Former Tobacco Use Quit Date: 03/22/15 Smoking risk assessment performed?: Yes Alcohol Intake: former Drug use: Daily Substance use type: marijuana Details: vaping cannabis. Housing: house Do you feel safe at home: Yes Do you feel safe in your relationship?: Yes Additional Social history: unable to assess privately Meds Allergies and Home Medications Allergies Allergy/AdvReac Type Severity Reaction Status Date / Time No Known Allergies Allergy Verified 03/09/25 10:09 Home Medications ?Medication ?Instructions ?Recorded ?Confirmed ?Type apixaban 5 mg tablet (Eliquis) 5 mg PO BID 09/05/24 03/09/25 History metoprolol tartrate 25 mg tablet 25 mg PO BID 09/05/24 03/09/25 History pantoprazole 40 mg tablet,delayed 40 mg PO DAILY #30 tabs 03/07/25 03/09/25 Rx release (Protonix) Exam Const General: cooperative and comfortable Orientation: alert, awake and oriented x3 HENMT Head: normal to inspection Eyes General: appearance normal, both eyes and all related structures Neck Neck: normal visual inspection, full ROM and no lymphadenopathy Resp Effort & Inspection: normal respiratory effort and able to speak in complete sentences Auscultation: clear to auscultation bilaterally GI Inspection: normal to inspection and non-distended Palpation: soft and nontender Results Labs 03/09/25 16:12 03/09/25 10:42 Labs: Laboratory Results - last 24 hr 03/09/25 10:42 WBC 9.93 RBC 3.23 L Hgb 10.3 L Hct 29.2 L MCV 90 MCH 31.9 MCHC 35.3 RDW 13.5 Plt Count 244 MPV 10.1 Immature Gran % 0.6 Neutrophils % 71.2 Lymphocytes % 19.5 Monocytes % 7.6 Eosinophils % 0.6 Basophils % 0.5 Nucleated RBC % 0.0 Absolute Neutrophils 7.07 H Absolute Lymphocytes 1.94 Absolute Monocytes 0.75 Absolute Eosinophils 0.06 Absolute Basophils 0.05 PT 10.8 INR 1.1 Sodium 142 Potassium 3.7 Chloride 108 H Carbon Dioxide 24.5 Anion Gap 9.5 BUN 19 Creatinine 0.79 Est GFR (CKD-EPI 2020) 100.32 Glucose 115 H Calcium 8.6 Magnesium 1.9 Total Bilirubin 0.7 AST 16 ALT 15 Alkaline Phosphatase 77 Troponin I < 3 Total Protein 6.3 Albumin 3.9 ABO/Rh B Positive Antibody Screen NEGATIVE Last Vital Signs Temp 97.9 F 03/09/25 10:05 Pulse 93 H 03/09/25 10:05 Resp 18 03/09/25 10:05 BP 134/91 H 03/09/25 10:05 Pulse Ox 94 03/09/25 10:05 VTE Prohylaxis Risk Level: Moderate/High Risk Contraindications: Active bleed/high bleed risk Prophylaxis: Mechanical Time Spent Time spent with Patient: >75 minutes Time was spent: preparing to see the patient(eg.review tests), ordering medications,tests, procedures, referring, communicating with other health director day care center, indepentently interpreting results, counseling the patient and care coordination
[2025-03-09 12:27] LABS: Troponin I 3 ng/L (<54)
--- NOTE | 2025-03-09 13:41 | ANES.PREOP_ITS ---
General Info Date of Service Date Performed: 03/09/25 Height: 5 ft 10 in Weight: 77.111 kg Body Mass Index (BMI): 24.3 Meds Allergies and Home Medications Allergies Allergy/AdvReac Type Severity Reaction Status Date / Time No Known Allergies Allergy Verified 03/09/25 10:09 Home Medication ?Medication ?Instructions ?Recorded apixaban 5 mg tablet (Eliquis) 5 mg PO BID 09/05/24 metoprolol tartrate 25 mg tablet 25 mg PO BID 09/05/24 pantoprazole 40 mg tablet,delayed 40 mg PO DAILY #30 t abs 03/07/25 release (Protonix) Current Visit Medications: Current Medications Generic Name Dose Route Start Last Admin Trade Name Freq PRN Reason Stop Dose Admin Morphine Sulfate 2 mg 03/09/25 11:57 Morphine 2 Mg/Ml Syr IVP Q1H PRN PRN Ondansetron HCl 4 mg 03/09/25 11:57 Ondansetron 4 Mg/2 Ml Vial IVP Q4H PRN PRN Pantoprazole Sodium 40 mg 03/09/25 12:00 Pantoprazole 40 Mg Vial IVP Q24H DANIELLE Sodium Chloride 0 ml 03/09/25 10:45 Normal Saline Flush 10 Ml Syr IVP PRN PRN Sodium Chloride 0 ml 03/09/25 20:00 Normal Saline Flush 10 Ml Syr IVP BID DANIELLE Sodium Chloride 0 ml 03/09/25 10:45 Normal Saline 10 Ml Vial IJ DIRECTED PRN Sodium Chloride 0 ml 03/09/25 11:57 Normal Saline Flush 10 Ml Syr IVP PRN PRN Sodium Chloride 0 ml 03/09/25 20:00 Normal Saline Flush 10 Ml Syr IVP BID DANIELLE Sodium Chloride 0 ml 03/09/25 11:57 Normal Saline 10 Ml Vial IJ DIRECTED PRN PFSH Active Problems Active Problems: Problem Status Onset Code Syncope Chronic R55 Normocytic anemia Acute D64.9 GI bleed Chronic K92.2 Hematemesis Acute K92.0 Kvng hematuria Acute R31.0 Medical History Medical History (Updated 03/08/25 @ 00:04 by FILIBERTO LACKEY) Urothelial carcinoma of bladder Bladder mass CVA (cerebral vascular accident) Occipital Stroke per x3 2020- Per states this was r/t to his afib and f/u cardiology...now f/u with PCP Viviana Lindsey Arthritis GERD (gastroesophageal reflux disease) Afib HTN (hypertension) Surgical History Surgical History Hx of hand surgery local Hx of hernia repair at Tobacco Smoking/Tobacco Use Status: Former Tobacco Use Alcohol Alcohol Intake: former Substance Use Substance use: Daily Substance use type: marijuana Details: vaping cannabis. Vital Signs and Lab Results Vital Signs Most Recent Vital Signs in EMR: Most Recent Vital Signs Temp Pulse Resp BP Pulse Ox 36.6 C 93 H 18 134/91 H 94 03/09/25 10:05 03/09/25 10:05 03/09/25 10:05 03/09/25 10:05 03/09/25 10:05 Lab Results 03/09/25 10:42 03/09/25 10:42 Blood Type / Crossmatch: 2 Antibody Screen NEGATIVE Today Complete Blood Count: 2 WBC, (4.4-10.8) 9.93 10^3/uL Today, 10:42 RBC, (4.36-5.78) 3.23 10^6/uL L Today, 10:42 Hgb, (13.5-17.5) 10.3 g/dL L Today, 10:42 Hct, (40.0-50.0) 29.2 % L Today, 10:42 Plt Count, (130-400) 244 10^3/uL Today, 10:42 Complete Metabolic Panel: 2 Sodium, (136-145) 142 mmol/L Today, 10:42 Potassium, (3.5-5.1) 3.7 mmol/L Today, 10:42 Chloride, (98-107) 108 mmol/L H Today, 10:42 Carbon Dioxide, (20.0-31.0) 24.5 mmol/L Today, 10:42 BUN, (9-23) 19 mg/dL Today, 10:42 Creatinine, (0.73-1.18) 0.79 mg/dL Today, 10:42 Est GFR (CKD-EPI 2020), (mL/min/1.73m2) 100.32 Today, 10:42 Magnesium, (1.6-2.6) 1.9 mg/dL Today, 10:42 Calcium, (8.3-10.6) 8.6 mg/dL Today, 10:42 Albumin, (3.2-5.0) 3.9 g/dL Today, 10:42 Glucose, (74-106) 115 mg/dL H Today, 10:42 Liver Function Panel: 2 ALT, (10-49) 15 U/L Today, 10:42 AST, (<34) 16 U/L Today, 10:42 Coagulation Panel: 2 INR, (0.9-1.1) 1.1 Today, 10:42 PT, (9.1-11.1) 10.8 sec Today, 10:42 Cardiac Panel: 2 Troponin I, (<54) 3 ng/L Today Toxicology Panel: 2 Ethyl Alcohol, (<3) < 3.0 mg/dL 03/06/25, 12:50 Imaging and Studies Imaging and Studies Study information below may be from another EMR and interpreted by another provider. Please see original notes in EMR for more complete details. EKG Summary: 03/09/25: NSR Anesthesia Assessment and Plan Anesthesia History Personal History: No History of Anesthesia Complications Family History: No Family History of Anesthesia Complications Exercise Tolerance Exercise Tolerance: Metabolic Equivalents>4 Pertinent Negatives Pertinent Negatives: No Major Pulmonary Symptoms or Complaints Cardiac & Pulmonary Exam Cardiac Exam: Normal S1/S2 Heart Sounds Pulmonary Exam: Clear Bilateral Breath Sounds Implantable Cardiac Device Does patient have a Pacemaker or an ICD?: No Airway Exam Known Difficult Airway: No Mallampati Class: 2 Mouth Opening: Normal (> 3cm) Thyromental Distance: Greater than 3 cm Neck Range of Motion: Full ROM Neck Circumference: Normal Teeth Condition: Normal Dentition ASA Classification ASA Score: ASA 3 Emergency Case?: No NPO Status NPO Status: NPO Clears >2 hours, Solids >8 hours Anesthesia Plan Resuscitation Status: Full Code Anesthesia Technique: General Anesthesia Airway Planned: Natural Airway Monitors Used: Standard Monitors
--- NOTE | 2025-03-09 14:18 | W.ED.GENAD ---
Discharge Plan Disposition Patient Disposition: Admit to [facility] Condition: Stable Discharge Details Clinical Impression: GI bleed, Chronic anticoagulation, A-fib Primary Care Provider: Viviana Lindsey ED Provider: Lynette Gabriel Home Meds and New Rx's Prescriptions: No Action metoprolol tartrate 25 mg tablet 25 mg PO BID Eliquis 5 mg tablet 5 mg PO BID pantoprazole [Protonix] 40 mg tablet,delayed release (DR/EC) 40 mg PO DAILY Qty: 30 0RF HPI General Date/Time Provider Initiated Documentation: 03/09/25 10:02. HPI Narrative: This 59-year-old male with history of A-fib and CVA status post admission for GI bleed, patient reportedly several days ago had a syncopal event with 3 episodes of hematemesis followed by reported hematochezia per hospitalist documentation. Colonoscopy and endoscopy were not performed and patient was discharged home without additional episodes of bleeding or vomiting. He resumed his Eliquis this morning. He did have an episode of blood in his stool yesterday which she describes as a dark with some blood mixed in. He also states that this morning he had dark bloody stool that filled the bowl which concerned him which site returns. He states he feels lightheaded he denies any additional episodes of syncope or vomiting. He does not consume alcohol. He did drink several times a week previously. He has never had a colonoscopy he is currently being treated for bladder cancer by Dr. Ospina has not had any surgery since December. Related Data Home Medications ?Medication ?Instructions ?Recorded ?Confirmed apixaban 5 mg tablet (Eliquis) 5 mg PO BID 09/05/24 03/09/25 metoprolol tartrate 25 mg tablet 25 mg PO BID 09/05/24 03/09/25 pantoprazole 40 mg tablet,delayed 40 mg PO DAILY #30 tabs 03/07/25 03/09/25 release (Protonix) Previous Rx's ?Medication ?Instructions ?Recorded pantoprazole 40 mg tablet,delayed 40 mg PO DAILY #30 tabs 03/07/25 release (Protonix) Allergies Allergy/AdvReac Type Severity Reaction Status Date / Time No Known Allergies Allergy Verified 03/09/25 10:09 General Stated Complaint: GI Bleed ASHLEY: 3 Exam Narrative Exam Narrative: Alert and oriented 59-year-old male in no acute distress, no abdominal tenderness cardiac rate rhythm regular, no pallor Course Vital Signs Vital signs: Vital Signs Temperature 36.6 C 03/09/25 10:05 Pulse 93 H 03/09/25 10:05 Respiratory Rate 18 03/09/25 10:05 Blood Pressure 134/91 H 03/09/25 10:05 Pulse Oximetry 94 03/09/25 10:05 Temperature 36.6 C 03/09/25 10:05 Temperature Source Oral 03/09/25 10:05 Pulse 94 H 03/09/25 13:50 Pulse 97 H 03/09/25 13:50 Respiratory Rate 18 03/09/25 13:50 Blood Pressure 136/90 03/09/25 13:46 Blood Pressure Mean 100 03/09/25 13:46 Pulse Oximetry 93 03/09/25 13:50 Pain Level 0 03/09/25 10:05 Lab/Test Results Lab/Test Results: Laboratory Tests Range/Units 03/09/25 03/09/25 10:42 11:45 WBC (4.4-10.8) 10^3/uL 9.93 RBC (4.36-5.78) 10^6/uL 3.23 L Hgb (13.5-17.5) g/dL 10.3 L Hct (40.0-50.0) % 29.2 L MCV (80-95) fL 90 MCH (27.0-33.0) pg 31.9 MCHC (32.0-36.0) % 35.3 RDW (11.8-14.1) % 13.5 Plt Count (130-400) 10^3/uL 244 MPV (8.0-11.0) fL 10.1 Immature Gran % % 0.6 Neutrophils % % 71.2 Lymphocytes % % 19.5 Monocytes % % 7.6 Eosinophils % % 0.6 Basophils % % 0.5 Nucleated RBC % (0.0-0.3) % 0.0 Absolute Neutrophils (1.2-6.7) 10^3/uL 7.07 H Absolute Lymphocytes (1.2-3.4) 10^3/uL 1.94 Absolute Monocytes (0.1-0.8) 10^3/uL 0.75 Absolute Eosinophils (0.0-0.7) 10^3/uL 0.06 Absolute Basophils (0.0-0.2) 10^3/uL 0.05 PT (9.1-11.1) sec 10.8 INR (0.9-1.1) 1.1 Sodium (136-145) mmol/L 142 Potassium (3.5-5.1) mmol/L 3.7 Chloride (98-107) mmol/L 108 H Carbon Dioxide (20.0-31.0) mmol/L 24.5 Anion Gap (3-11) mmol/L 9.5 BUN (9-23) mg/dL 19 Creatinine (0.73-1.18) mg/dL 0.79 Est GFR (CKD-EPI 2020) (mL/min/1.73m2) 100.32 Glucose (74-106) mg/dL 115 H Calcium (8.3-10.6) mg/dL 8.6 Magnesium (1.6-2.6) mg/dL 1.9 Total Bilirubin (0.2-1.2) mg/dL 0.7 AST (<34) U/L 16 ALT (10-49) U/L 15 Alkaline Phosphatase (46-116) U/L 77 Troponin I (<54) ng/L < 3 3 Total Protein (5.7-8.2) g/dL 6.3 Albumin (3.2-5.0) g/dL 3.9 ABO/Rh B Positive Antibody Screen NEGATIVE Medical Decision Making Results: CTA chest abdomen and pelvis was reviewed from prior assessment CTA was reviewed from last encounter of chest abdomen and pelvis and does not show evidence of varices or active bleeding hemoglobin hemoglobin today is 10.3 not significantly changed from 2 days prior Assessment and plan: Patient with recurrent bleeding chronic anticoagulation on Eliquis without any prior upper or lower GI evaluation with scope. At this time he is hemodynamically stable but I think he benefit from observation admission I certainly do not think he needs to be reversed at this time but I will hold Eliquis. I do not feel patient needs additional diagnostic imaging. I reached out to her surgeon as patient likely has a lower GI bleed based on this assessment after reviewing patient's picture with melena from earlier this morning. He is agreeable to admission Dr. Montes will evaluate the patient for disposition and likely admission at this time. No indication for blood products at this time remains hemodynamically stable and monitor. COUNTS INCLUDE 234 BEDS AT THE [facility] All Active Problems (Updated 03/09/25 @ 14:27 by SRAVANI Arora) A-fib (Chronic) Chronic anticoagulation (Acute) Syncope (Chronic) Normocytic anemia (Acute) GI bleed (Chronic) Hematemesis (Acute) Kvng hematuria (Acute) Medical History (Updated 03/09/25 @ 14:27 by SRAVANI Arora) Urothelial carcinoma of bladder Bladder mass CVA (cerebral vascular accident) Occipital Stroke per x3 2020- Per states this was r/t to his afib and f/u cardiology...now f/u with PCP Viviana Lindsey Arthritis GERD (gastroesophageal reflux disease) Afib HTN (hypertension) Surgical History Hx of hand surgery local Hx of hernia repair at Social History Smoking/Tobacco Use Status: Former Tobacco Use Quit Date: 03/22/15 Smoking risk assessment performed?: Yes Alcohol Intake: former Drug use: Daily Substance use type: marijuana Details: vaping cannabis. Housing: house Do you feel safe at home: Yes Do you feel safe in your relationship?: Yes Additional Social history: unable to assess privately
[2025-03-09] MEDS: Bisacodyl 5 MG TABEC 10 MG PO ×2 (14:47→14:48)
[2025-03-09 14:59] LABS: Troponin I < 3 ng/L (<54)
[2025-03-09] MEDS: Lactated Ringers 1,000 ML 1000 ML IV (16:14)
[2025-03-09 16:24] LABS: HGB 8.6 g/dL (13.5-17.5)
[2025-03-09] MEDS: Lactated Ringers 1,000 ML 30 ML IV (17:37)
--- NOTE | 2025-03-09 19:53 | W.ANESPOSTOP ---
Postoperative Evaluation Date, Time and Location Date Performed: 03/09/25 Time Performed: 19:05 Patient Location: Intensive Care Unit Vital Signs Most Recent Imported Vital Signs: Most Recent Vital Signs Temp Pulse Resp BP Pulse Ox 36.6 C 92 H 14 121/84 98 03/09/25 10:05 03/09/25 17:30 03/09/25 17:30 03/09/25 17:30 03/09/25 17:20 Pain Score Most Recent Pain Score: Most Recent Pain Score Pain Level 0 03/09/25 10:05 Assessment Mental Status: Awake (Alert & Oriented to Patient Baseline) Airway and Respiratory Function: Patent airway with normal (patient baseline) respiratory exam Cardiovascular Function: Hemodynamically Stable Hydration Status: Adequately Hydrated Nausea & Vomiting: No Nausea or Vomiting Pain: Pt. Denies Any Pain Peripheral Nerve Block: Patient did not receive a nerve block
--- NOTE | 2025-03-09 21:25 | W.PC.ACHO ---
Registration Status: ADM GABBY Primary Language: Preferred Language: ED Information & Data Chief Complaint GI Bleed 03/09/25 14:24 Triage Note pt returns after being 03/09/25 10:05 discharged for blood in his stool. States he was instructed to come back if it continues. States this morning there was a large amount in the toilet. Unsure of clost. Denies any pain Medical / Surgical History (Last Reviewed 02/05/25 @ 06:34 by Samra Devi RN) Urothelial carcinoma of bladder Bladder mass CVA (cerebral vascular accident) Arthritis GERD (gastroesophageal reflux disease) Afib HTN (hypertension) (Last Reviewed 02/05/25 @ 06:34 by Samra Devi RN) Hx of hand surgery Hx of hernia repair Most Recent Vital Signs Temperature 37.0 C 03/09/25 19:05 Temperature Source Temporal Artery Scan 03/09/25 19:05 Pulse 92 H 03/09/25 17:30 Pulse 94 H 03/09/25 17:30 Respiratory Rate 14 03/09/25 17:30 Respiratory Effort Normal 03/09/25 19:05 Respiratory Depth Normal 03/09/25 19:05 Respiratory Pattern Normal 03/09/25 19:05 Blood Pressure 121/84 03/09/25 17:30 Blood Pressure Mean 93 03/09/25 17:30 Pulse Oximetry 96 03/09/25 19:05 Oxygen Delivery Method Nasal Cannula 03/09/25 19:05 Pain Level 0 03/09/25 10:05 Allergies No Known Allergies Allergy (Verified 03/09/25 10:09) Precautions Isolation Standard precaution 03/09/25 10:07 Active Medications Generic Name Dose Route Start Last Admin Trade Name Margaret PRN Reason Stop Dose Admin Sodium Chloride 0 ml 03/09/25 20:00 03/09/25 20:38 Normal Saline Flush 10 Ml Syr IVP Not Given BID DANIELLE Sodium Chloride 0 ml 03/09/25 20:00 03/09/25 20:38 Normal Saline Flush 10 Ml Syr IVP Not Given BID DANIELLE IV IV Catheter Type [Right Peripheral IV Antecubital] IV Catheter Type [Left Peripheral IV Antecubital] IV Catheter Gauge [Right 16 Antecubital] IV Catheter Gauge [Left 16 Antecubital] Diet Orders Category Date Time Status Regular/Normal [DIET] Nutrition 03/09/25 Dinner Active Diagnostics 1203/09/25 03/09/25 Range/Units 23:00 18:00 16:12 WBC (4.4-10.8) 10^3/uL RBC (4.36-5.78) 10^6/uL Hgb Pending Cancelled 8.6 L (13.5-17.5) g/dL Hct (40.0-50.0) % MCV (80-95) fL MCH (27.0-33.0) pg MCHC (32.0-36.0) % RDW (11.8-14.1) % Plt Count (130-400) 10^3/uL MPV (8.0-11.0) fL Immature Gran % % Neutrophils % % Lymphocytes % % Monocytes % % Eosinophils % % Basophils % % Nucleated RBC % (0.0-0.3) % Absolute Neutrophils (1.2-6.7) 10^3/uL Absolute Lymphocytes (1.2-3.4) 10^3/uL Absolute Monocytes (0.1-0.8) 10^3/uL Absolute Eosinophils (0.0-0.7) 10^3/uL Absolute Basophils (0.0-0.2) 10^3/uL PT (9.1-11.1) sec INR (0.9-1.1) Sodium (136-145) mmol/L Potassium (3.5-5.1) mmol/L Chloride (98-107) mmol/L Carbon Dioxide (20.0-31.0) mmol/L Anion Gap (3-11) mmol/L BUN (9-23) mg/dL Creatinine (0.73-1.18) mg/dL Est GFR (CKD-EPI 2020) (mL/min/1.73m2) Glucose (74-106) mg/dL Calcium (8.3-10.6) mg/dL Magnesium (1.6-2.6) mg/dL Total Bilirubin (0.2-1.2) mg/dL AST (<34) U/L ALT (10-49) U/L Alkaline Phosphatase (46-116) U/L Troponin I (<54) ng/L Total Protein (5.7-8.2) g/dL Albumin (3.2-5.0) g/dL ABO/Rh Antibody Screen Crossmatch 03/09/25 03/09/25 03/09/25 Range/Units 14:35 11:45 10:42 WBC 9.93 (4.4-10.8) 10^3/uL RBC 3.23 L (4.36-5.78) 10^6/uL Hgb 10.3 L (13.5-17.5) g/dL Hct 29.2 L (40.0-50.0) % MCV 90 (80-95) fL MCH 31.9 (27.0-33.0) pg MCHC 35.3 (32.0-36.0) % RDW 13.5 (11.8-14.1) % Plt Count 244 (130-400) 10^3/uL MPV 10.1 (8.0-11.0) fL Immature Gran % 0.6 % Neutrophils % 71.2 % Lymphocytes % 19.5 % Monocytes % 7.6 % Eosinophils % 0.6 % Basophils % 0.5 % Nucleated RBC % 0.0 (0.0-0.3) % Absolute Neutrophils 7.07 H (1.2-6.7) 10^3/uL Absolute Lymphocytes 1.94 (1.2-3.4) 10^3/uL Absolute Monocytes 0.75 (0.1-0.8) 10^3/uL Absolute Eosinophils 0.06 (0.0-0.7) 10^3/uL Absolute Basophils 0.05 (0.0-0.2) 10^3/uL PT 10.8 (9.1-11.1) sec INR 1.1 (0.9-1.1) Sodium 142 (136-145) mmol/L Potassium 3.7 (3.5-5.1) mmol/L Chloride 108 H (98-107) mmol/L Carbon Dioxide 24.5 (20.0-31.0) mmol/L Anion Gap 9.5 (3-11) mmol/L BUN 19 (9-23) mg/dL Creatinine 0.79 (0.73-1.18) mg/dL Est GFR (CKD-EPI 2020) 100.32 (mL/min/1.73m2) Glucose 115 H (74-106) mg/dL Calcium 8.6 (8.3-10.6) mg/dL Magnesium 1.9 (1.6-2.6) mg/dL Total Bilirubin 0.7 (0.2-1.2) mg/dL AST 16 (<34) U/L ALT 15 (10-49) U/L Alkaline Phosphatase 77 (46-116) U/L Troponin I < 3 3 < 3 (<54) ng/L Total Protein 6.3 (5.7-8.2) g/dL Albumin 3.9 (3.2-5.0) g/dL ABO/Rh B Positive Antibody Screen NEGATIVE Crossmatch See Detail Intake and Output - 24 Hour Total 03/09/25 09:53 thru 03/09/25 20:37 Intake Total 1746.5 Balance 1746.5 Weight 76.5 kg Intake: IV 1746.5 Other: Emesis Description None Falls Risk Assessment History of Falls Fall During Stay 03/09/25 19:05 Contributing Factors Unstable 03/09/25 19:05 Ambulatory Aids Independent 03/09/25 19:05 Tubes/Lines With any additional score 03/09/25 19:05 Gait Evaluation No gait disturbance 03/09/25 19:05 Cognition No cognitive impairment 03/09/25 19:05 Fall Total Score 48 03/09/25 19:05 Level of Risk Moderate Risk 03/09/25 19:05 Problems (Last Reviewed 02/05/25 @ 06:34 by Samra Devi RN) GI bleed (Chronic) Attestation Statement: By documenting the first initial, last name, and credentials of the reporting nurse below, both parties acknowledge that all relevant information regarding the patient handoff has been communicated, and that all questions have been addressed to ensure continuity and safety of care. Additional Patient Information/Comments: Report Received From: Sushil Charles RN
[2025-03-09 23:06] LABS: HGB 8.3 g/dL (13.5-17.5)
[2025-03-10] VITALS (19 sets, daily range): BP systolic 109–132; BP diastolic 75–94; PULSE 68–104; RESP 10–22; TEMP 36.6–37; O2SAT 91–96
[2025-03-10] MEDS: Lactated Ringers 1,000 ML 75 ML IV (00:02)
[2025-03-10 06:42] LABS: Abs Immature Grans 0.08 10^3/uL (0.0-0.06); HCT 24.1 % (40.0-50.0); HGB 8.6 g/dL (13.5-17.5); Immature Grans % 1.0 %; MCH 32.6 pg (27.0-33.0); MCHC 35.7 % (32.0-36.0); MCV 91 fL (80-95); MPV 10.7 fL (8.0-11.0); Platelet Count 169 10^3/uL (130-400); RBC 2.64 10^6/uL (4.36-5.78); RDW 14.4 % (11.8-14.1); RDW-SD 46.0 fL; WBC 8.38 10^3/uL (4.4-10.8)
[2025-03-10 07:07] LABS: Anion Gap 9.4 mmol/L (3-11); BUN 16 mg/dL (9-23); CO2 25.6 mmol/L (20.0-31.0); Calcium 8.1 mg/dL (8.3-10.6); Chloride 107 mmol/L (98-107); Glucose 95 mg/dL (74-106); Potassium 3.4 mmol/L (3.5-5.1); Sodium 142 mmol/L (136-145)
[2025-03-10] MEDS: Pantoprazole 40 MG TABCR PO (08:30)
[2025-03-10] MEDS: Metoprolol 25 MG TAB PO ×2 (08:30→20:16)
[2025-03-10] MEDS: Normal Saline Flush 10 ML SYR IVP ×2 (08:35)
--- NOTE | 2025-03-10 09:37 | PDOC.CMIN ---
Date of service: 03/10/25 Time of Service: 09:37 Care Management Initial Assmt Initial Assessment Reason for Hospitalization: GI bleeding Functional Status/Living Situation Patient Presentation: Jared was lying in bed when CM met with him. He was pleasant and engaged easily in conversation. He stated that he is feeling much better today, and that per MD, he may be ready for discharge as early as tomorrow. He expressed that he has a good understanding of his plan of care, and that he is looking forward to returning home. He reported that he lives in [facility] with his , Boyd, and that his mother lives nearby and is supportive as well. He is employed as a reyes, working for [employer]. He is independent at baseline. CM will continue to follow. Town of Residence: [place] [facility] Resides with: Spouse (, Boyd) Significant Other/Family: Local [employer]: , Boyd Mother, Krissy Employment Status: Employed ([employer]) Instrumental Activities of Daily Living (ADLs): Independent Medications Medication Management: No Issues/Barriers identified Advance Directives Advance Directives: Do you have an Advance Directive: Y 03/09/25, 20:27 AD On File at [facility]: Y 03/09/25, 20:27 Date Asked 03/06/25 03/06/25, 12: AD Date Reviewed 03/09/25 03/09/25, 20: COLST On File at [facility] COLST Date Scanned Code Status Resuscitation Status Full Code Insurance Coverage/Financial Issues Insurance: P Care Team Visit Care Team Role Provider Type Viviana Lindsey Primary Care Provider NURSE PRACTITIONER Chema Montes MD Admit Provider [facility] STAFF PHYSICIAN Attending Provider Emergency Provider Discharge Potential Discharge Needs: Surgical F/U Appt Anticipated Barriers to Discharge: None Identified Patient/Family Education Needs: Review discharge instructions, discuss Ask Me Three Transportation: Private vehicle Plan: Anticipate Jared will return home once medically cleared. His will drive him home via private vehicle. He will follow up with surgical services, and his discharge plan of care. CM will continue to follow. Social Determinants of Health Screening Social Determinants of health last assessed in clinic: 03/10/25 Will the Patient Participate in the Screening?: Yes Do you worry about having a steady place to live?: no Problems where you live: no known problems In the past 12 months, have you had to go without electric, gas, oil or water in your home?: no 1. Within the past 12 months, we worried whether our food would run out before we got money to buy more.: Never true 2. Within the past 12 months, the food we bought just didn't last and we didn't have money to get more.: Never true Has lack of transportation kept you from medical appointments or from doing things needed for daily living?: no Has anyone in your life made you feel unsafe or unsupported?: no How hard is it for you to pay for the very basics like food, housing, medical care, and heating? Would you say it is:: Not hard at all Do you want help finding or keeping work or a job?: I do not need or want help If for any reason you need help with day-to-day activities such as bathing, preparing meals, shopping, managing finances, etc., do you get the help you need?: I don?t need any help How often do you feel lonely or isolated from those around you?: Never Do you speak a language other than Lao at home?: No PFSH All Active Problems (Updated 03/09/25 @ 14:27 by SRAVANI rAora) A-fib (Chronic) Chronic anticoagulation (Acute) Syncope (Chronic) Normocytic anemia (Acute) GI bleed (Chronic) Hematemesis (Acute) Kvng hematuria (Acute) Medical History (Updated 03/09/25 @ 14:27 by SRAVANI Arora) Urothelial carcinoma of bladder Bladder mass CVA (cerebral vascular accident) Occipital Stroke per x3 2020- Per states this was r/t to his afib and f/u cardiology...now f/u with PCP Viviana Lindsey Arthritis GERD (gastroesophageal reflux disease) Afib HTN (hypertension) Surgical History Hx of hand surgery local Hx of hernia repair at Social History Smoking/Tobacco Use Status: Former Tobacco Use Quit Date: 03/22/15 Smoking risk assessment performed?: Yes Alcohol Intake: former Drug use: Daily Substance use type: marijuana Details: vaping cannabis. Housing: house Do you feel safe at home: Yes Do you feel safe in your relationship?: Yes Additional Social history: unable to assess privately
--- NOTE | 2025-03-10 10:56 | PGE_ITS ---
Date of Service Date of service: 03/10/25 Time of Service: 10:56 Assessment and Plan Assessment and plan (1) GI bleed: Status: Chronic Assessment and plan: Jared appears to be doing well, with no clinical evidence of bleeding at this time. His hemoglobin is slightly increased compared to last night. Hopefully, the EGD with cauterization and clipping has resolved this bleeding. I will transfer him to the floor today, and advance his diet. I will continue with proton pump inhibitor therapy, but switch it over to an enteral regimen. We are still waiting for stool sample to send for H. pylori, and I will continue to hold the apixaban for now. I had like to keep him on telemetry to see if there is any evidence of atrial fibrillation here in the hospital. Ideally, he will remain in sinus, and we could give consideration of holding his apixaban as he transitions home. It may be worth a trial of continuous cardiac monitoring at home to reevaluate whether or not he actually has atrial fibrillation, and whether or not anticoagulation is actually warranted. Subjective Subjective Interval history since last seen: Jared had some atrial fibrillation overnight. He was asymptomatic, blood pressure was preserved. It is unclear if it was paroxysmal atrial fibrillation or sinus tachycardia. He feels well this morning, and has been tolerating liquids without any type of nausea or vomiting. He has not had a bowel movement yet. He denies any pain. Exam GI Other: Abdomen is soft and nondistended. Objective Last Vital Signs Temp 98.6 F 03/09/25 19:05 Pulse 96 H 03/10/25 08:13 Resp 13 03/10/25 08:13 BP 128/94 H 03/10/25 08:13 Pulse Ox 95 03/10/25 04:00 Laboratory Results - last 24 hr 03/09/25 03/09/25 03/09/25 10:42 11:45 14:35 WBC 9.93 RBC 3.23 L Hgb 10.3 L Hct 29.2 L MCV 90 MCH 31.9 MCHC 35.3 RDW 13.5 Plt Count 244 MPV 10.1 Immature Gran % 0.6 Neutrophils % 71.2 Lymphocytes % 19.5 Monocytes % 7.6 Eosinophils % 0.6 Basophils % 0.5 Nucleated RBC % 0.0 Absolute Neutrophils 7.07 H Absolute Lymphocytes 1.94 Absolute Monocytes 0.75 Absolute Eosinophils 0.06 Absolute Basophils 0.05 PT 10.8 INR 1.1 Sodium 142 Potassium 3.7 Chloride 108 H Carbon Dioxide 24.5 Anion Gap 9.5 BUN 19 Creatinine 0.79 Est GFR (CKD-EPI 2020) 100.32 Glucose 115 H Calcium 8.6 Magnesium 1.9 Total Bilirubin 0.7 AST 16 ALT 15 Alkaline Phosphatase 77 Troponin I < 3 3 < 3 Total Protein 6.3 Albumin 3.9 ABO/Rh B Positive Antibody Screen NEGATIVE Crossmatch See Detail 03/09/25 03/09/25 03/09/25 16:12 18:00 23:00 WBC RBC Hgb 8.6 L Cancelled 8.3 L Hct MCV MCH MCHC RDW Plt Count MPV Immature Gran % Neutrophils % Lymphocytes % Monocytes % Eosinophils % Basophils % Nucleated RBC % Absolute Neutrophils Absolute Lymphocytes Absolute Monocytes Absolute Eosinophils Absolute Basophils PT INR Sodium Potassium Chloride Carbon Dioxide Anion Gap BUN Creatinine Est GFR (CKD-EPI 2020) Glucose Calcium Magnesium Total Bilirubin AST ALT Alkaline Phosphatase Troponin I Total Protein Albumin ABO/Rh Antibody Screen Crossmatch 03/10/25 05:25 WBC 8.38 RBC 2.64 L Hgb 8.6 L Hct 24.1 L MCV 91 MCH 32.6 MCHC 35.7 RDW 14.4 H Plt Count 169 MPV 10.7 Immature Gran % 1.0 Neutrophils % 70.6 Lymphocytes % 19.8 Monocytes % 7.4 Eosinophils % 0.8 Basophils % 0.4 Nucleated RBC % 0.0 Absolute Neutrophils 5.92 Absolute Lymphocytes 1.66 Absolute Monocytes 0.62 Absolute Eosinophils 0.07 Absolute Basophils 0.03 PT INR Sodium 142 Potassium 3.4 L Chloride 107 Carbon Dioxide 25.6 Anion Gap 9.4 BUN 16 Creatinine 0.75 Est GFR (CKD-EPI 2020) 106.52 Glucose 95 Calcium 8.1 L Magnesium Total Bilirubin AST ALT Alkaline Phosphatase Troponin I Total Protein Albumin ABO/Rh Antibody Screen Crossmatch VTE Prohylaxis Risk Level: Moderate/High Risk Contraindications: Active bleed/high bleed risk Prophylaxis: Mechanical Time Spent with Patient Time Spent with Patient: 35-49 minutes Time was spent: preparing to see the patient(eg.review tests), ordering medications,tests, procedures, referring, communicating with other health long term care pharmacist, indepentently interpreting results, counseling the patient and care coordination
[2025-03-10 18:21] LABS: HGB 8.5 g/dL (13.5-17.5)
[2025-03-11] VITALS (7 sets, daily range): BP systolic 114; BP diastolic 83; PULSE 65–88; RESP 11–22; TEMP 37.2
[2025-03-11] MEDS: Pantoprazole 40 MG TABCR PO (07:40)
[2025-03-11] MEDS: Metoprolol 25 MG TAB PO (07:44)
--- NOTE | 2025-03-11 09:20 | W.PM.PROGNOT ---
Date of Service Date of service: 03/11/25 Time of Service: 09:20 Assessment and Plan Assessment and plan (1) GI bleed: Status: Chronic Assessment and plan: At this point, there is no clinical evidence of any ongoing bleeding. Will continue the PPI therapy at home, and to hold his apixaban for the next few days to see how he does. Will have him follow-up in the office in the next week or 2, with a repeat hemoglobin check and an iron level to assess his acute blood loss anemia. I was able to find some old records that seem to support the diagnosis of an occipital stroke a little over 5 years ago. There is some documentation that describes paroxysmal atrial fibrillation. We were not able to capture any atrial fibrillation during his hospital stay at this point. We did talk a little bit about the role of outpatient cardiac monitoring, and I think it is useful to follow-up with his primary care physician this week as scheduled. Although the history does seem to support the idea that he had a cardiac related CVA, now that he had significant complications of bleeding it may be worth revisiting the decision of whether or not to anticoagulate in the long run. I also have a H. pylori test pending. Obviously, if that is positive, we can treat that, which would help simplify all of this. Subjective Subjective Interval history since last seen: Discussed feeling well this morning. He had a small slightly dark bowel movements last night. Has been tolerating food without any discomfort. Repeat hemoglobin last evening was stable Exam GI Other: Abdomen soft and nontender. Objective Last Vital Signs Temp 99.0 F 03/11/25 07:33 Pulse 67 03/11/25 07:43 Resp 22 03/11/25 08:00 BP 114/83 03/11/25 07:43 Pulse Ox 95 03/10/25 20:22 Laboratory Results - last 24 hr 03/10/25 18:06 Hgb 8.5 L VTE Prohylaxis Risk Level: Moderate/High Risk Contraindications: Active bleed/high bleed risk Prophylaxis: Mechanical Time Spent with Patient Time Spent with Patient: 25-34 minutes Time was spent: preparing to see the patient(eg.review tests), referring, communicating with other health customer care assistant and counseling the patient
--- NOTE | 2025-03-11 09:23 | W.PM.DS.N ---
Date of service: 03/11/25 Time of Service: 09:23 DS: Diagnosis Discharge Diagnosis (1) GI bleed: Status: Chronic Asessment and Plan: Discharge home with PPI therapy, and outpatient follow-up Discharge Plan Disposition Patient Disposition: Home Condition: Improving Discharge Details Reason For Visit: Gastrointestinal bleeding Admit Date/Time: 03/09/25 11:57 Admit Provider: Chema Montes Attending Provider: Chema Montes Primary Care Provider: Viviana Lindsey Hospital Course Hospital Course: Jared is 59 years old. He was recently hospitalized with concerns for hematemesis. He was discharged from the original hospital stay, with a planned outpatient evaluation. Unfortunately, he had ongoing melena, return to the emergency department with lightheadedness. In the emergency department, he developed hypotension, and an acute decrease in his hemoglobin level. He was transfused packed red blood cells, and brought to the operating room emergently for an EGD. He had some diffuse gastritis, with a few areas of punctate ulceration, and 1 ulcer associated with a visible vessel. Culprit ulcer was clipped, and the other site cauterized. He did well after the procedure, with reassuring vital signs, no further evidence of worrisome hematochezia or melena. A stool sample was obtained to test for H. pylori, PPI therapy was continued. He was discharged home with an interruption in his therapeutic anticoagulation, and ongoing PPI treatment. Home Meds and New Rx's Prescriptions: Continued metoprolol tartrate 25 mg tablet 25 mg PO BID pantoprazole [Protonix] 40 mg tablet,delayed release (DR/EC) 40 mg PO DAILY Qty: 30 0RF Held Eliquis 5 mg tablet 5 mg PO BID Hold Instructions: Resume on 03/22/25. Jared, I am not certain why we will resume this. Discharge Instructions Instructions: Peptic ulcers, [place] Diet Additional Instructions: Jared, it was good meeting you and Boyd. As a brief summary, you had bleeding in your stomach that seem to be the result of gastritis, or irritation of the stomach lining combined with a few small ulcers. I placed the metallic clips over the ulcer that I suspect was the major source of bleeding, and cauterized the other lesions. We will use Protonix to help reduce stomach acid production in an effort to get these ulcers to heal. You have an outstanding stool test that I will follow-up on to see if there is any evidence of infection in your stomach that could be treated with the antibiotics. As we discussed, I would like you to hold your Eliquis for right now. I will have the office contact you tomorrow to set up a follow-up visit with us, and prior to that meeting, I would like you to get your blood tested at the lab here at the hospital. Prior to writing this, I was able to find a few of the notes that were gathered by the anesthesia team prior to your urology procedure. That note does mention fairly convincing information that would support the idea that you had a stroke, and I do see that one of the track walker mentioned that you had an EKG that did show paroxysmal atrial fibrillation. This is in line with many of the things that we talked about. And in the long run, it may be that we need to go back onto the anticoagulation, or have you meet with a track walker to discuss other options. Do not worry about that at this moment, however. As I mentioned, we will get in [place] [facility] see what other details they have. Again, this is a little outside of my area of expertise, but at least we can get everyone talking to see if there are any other options. For now, just hold the Eliquis, and take the Protonix (for pantoprazole) medication that is prescribed. As I mentioned, 40 mg 1 time per day should be sufficient. If you have any questions or need anything before your visit, please do not hesitate to call us at [phone] Stand Alone Forms: Portal Information Activity:: Activity as Tolerated Equipment/Supplies:: No Equipment Needed Diet:: As Tolerated DS: Summary Time Spent with Patient providing and/or coordinating discharge services: Greater than 30 minutes Status at Discharge Functional status at discharge: independent ambulation Overall status at discharge: patient is progressing back to baseline Mental Status: mental status grossly normal Speech and Movement: speech and movement normal Mood: congruent mood Affect: normal affect Exam Psych Mental Status: mental status grossly normal Speech and Movement: speech and movement normal Mood: congruent mood Affect: normal affect DS: Data Vitals/I&O Vitals and I&O: Vital Signs Temperature 99.0 F 03/11/25 07:33 Temperature Source Temporal Artery Scan 03/11/25 07:33 Pulse 67 03/11/25 07:43 Pulse 88 03/11/25 08:00 Respiratory Rate 22 03/11/25 08:00 Respiratory Effort Normal 03/09/25 19:05 Respiratory Depth Normal 03/09/25 19:05 Respiratory Pattern Normal 03/09/25 19:05 Blood Pressure 114/83 03/11/25 07:43 Blood Pressure Mean 93 03/11/25 07:43 Pulse Oximetry 95 03/10/25 20:22 Oxygen Delivery Method Room Air 03/09/25 20:00 Oxygen Flow Rate 0 03/09/25 20:00 Pain Level 0 03/09/25 10:05 Intake & Output 03/10/25 03/10/25 03/11/25 11:59 23:59 11:59 Intake Total 673.5 / 2295.5 1622 / 2295.5 240 / 240 Output Total 1380 / 1830 450 / 1830 950 / 950 Balance -706.5 / 465.5 1172 / 465.5 -710 / -710 Weight 167 lb 12.348 oz Intake: IV 273.5 / 1273.5 1000 / 1273.5 Oral 400 / 1022 622 / 1022 240 / 240 Output: Urine 1380 / 1830 450 / 1830 950 / 950 Other: Urine Color Yellow Yellow Light Aurelio Urine Appearance Clear Clear Clear Urine Odor Normal Normal Normal Comment 700mL of yellow-light aurelio urine voided in urinal. Patient reports amount over two voidings, unknown time. Stool Size Small Stool Characteristics Soft Black Data Completed and Pending Pending Labs at Discharge: 03/09/25 03/09/25 03/09/25 10:42 11:45 14:35 WBC 9.93 RBC 3.23 L Hgb 10.3 L Hct 29.2 L MCV 90 MCH 31.9 MCHC 35.3 RDW 13.5 Plt Count 244 MPV 10.1 Immature Gran % 0.6 Neutrophils % 71.2 Lymphocytes % 19.5 Monocytes % 7.6 Eosinophils % 0.6 Basophils % 0.5 Nucleated RBC % 0.0 Absolute Neutrophils 7.07 H Absolute Lymphocytes 1.94 Absolute Monocytes 0.75 Absolute Eosinophils 0.06 Absolute Basophils 0.05 PT 10.8 INR 1.1 Sodium 142 Potassium 3.7 Chloride 108 H Carbon Dioxide 24.5 Anion Gap 9.5 BUN 19 Creatinine 0.79 Est GFR (CKD-EPI 2020) 100.32 Glucose 115 H Calcium 8.6 Magnesium 1.9 Total Bilirubin 0.7 AST 16 ALT 15 Alkaline Phosphatase 77 Troponin I < 3 3 < 3 Total Protein 6.3 Albumin 3.9 Stool H. pylori Ag ABO/Rh B Positive Antibody Screen NEGATIVE Crossmatch See Detail 03/09/25 03/09/25 03/09/25 16:12 18:00 23:00 WBC RBC Hgb 8.6 L Cancelled 8.3 L Hct MCV MCH MCHC RDW Plt Count MPV Immature Gran % Neutrophils % Lymphocytes % Monocytes % Eosinophils % Basophils % Nucleated RBC % Absolute Neutrophils Absolute Lymphocytes Absolute Monocytes Absolute Eosinophils Absolute Basophils PT INR Sodium Potassium Chloride Carbon Dioxide Anion Gap BUN Creatinine Est GFR (CKD-EPI 2020) Glucose Calcium Magnesium Total Bilirubin AST ALT Alkaline Phosphatase Troponin I Total Protein Albumin Stool H. pylori Ag ABO/Rh Antibody Screen Crossmatch 03/10/25 03/10/25 03/10/25 05:25 16:40 18:06 WBC 8.38 RBC 2.64 L Hgb 8.6 L 8.5 L Hct 24.1 L MCV 91 MCH 32.6 MCHC 35.7 RDW 14.4 H Plt Count 169 MPV 10.7 Immature Gran % 1.0 Neutrophils % 70.6 Lymphocytes % 19.8 Monocytes % 7.4 Eosinophils % 0.8 Basophils % 0.4 Nucleated RBC % 0.0 Absolute Neutrophils 5.92 Absolute Lymphocytes 1.66 Absolute Monocytes 0.62 Absolute Eosinophils 0.07 Absolute Basophils 0.03 PT INR Sodium 142 Potassium 3.4 L Chloride 107 Carbon Dioxide 25.6 Anion Gap 9.4 BUN 16 Creatinine 0.75 Est GFR (CKD-EPI 2020) 106.52 Glucose 95 Calcium 8.1 L Magnesium Total Bilirubin AST ALT Alkaline Phosphatase Troponin I Total Protein Albumin Stool H. pylori Ag Pending ABO/Rh Antibody Screen Crossmatch PFSH All Active Problems (Updated 03/09/25 @ 14:27 by SRAVANI Arora) A-fib (Chronic) Chronic anticoagulation (Acute) Syncope (Chronic) Normocytic anemia (Acute) GI bleed (Chronic) Hematemesis (Acute) Kvng hematuria (Acute) Medical History (Updated 03/09/25 @ 14:27 by SRAVNAI Arora) Urothelial carcinoma of bladder Bladder mass CVA (cerebral vascular accident) Occipital Stroke per x3 2020- Per states this was r/t to his afib and f/u cardiology...now f/u with PCP Viviana Lindsey Arthritis GERD (gastroesophageal reflux disease) Afib HTN (hypertension) Surgical History Hx of hand surgery local Hx of hernia repair at Social History Smoking/Tobacco Use Status: Former Tobacco Use Quit Date: 03/22/15 Smoking risk assessment performed?: Yes Alcohol Intake: former Drug use: Daily Substance use type: marijuana Details: vaping cannabis. Housing: house Do you feel safe at home: Yes Do you feel safe in your relationship?: Yes Additional Social history: unable to assess privately Time Spent with Patient Time Spent with Patient: 45-69 minutes Time was spent: obtaining and/or reviewing separately otained hiistory, ordering medications,tests, procedures, indepentently interpreting results, counseling the patient and care coordination
--- NOTE | 2025-03-11 15:38 | PDOC.CMDIS ---
Date of service: 03/11/25 Time of Service: 15:38 LACE Index Scoring Tool Questions: Length of Stay (in days): 2 Was the patient admitted via the E.D.?: Yes E.D. Visits: 1 Answers: Total Score: 6 Risk of Readmission: Low Risk Care Management Discharge Plan Reason for Hospitalization: GI bleeding Discharge Plan: Jared returned home with no new services. His transported him home via private vehicle. He will follow up with his PCP, surgical services, and his discharge plan of care. Patient/Family Education Needs: Review discharge instructions and limitations, discussion of self care needs including ask me three.
--- NOTE | 2025-03-12 07:37 | W.PM.OP ---
Operative Note Operative Note PRE-OP DIAGNOSIS: Peptic ulcer disease POST-OP DIAGNOSIS: same PROCEDURE: EGD with cauterization and application of resolution 360 clips SURGEON: Chema Montes ANESTHESIA TYPE: General LMA/ETT Refer to Anesthesia Record ESTIMATED BLOOD LOSS: 300 PATHOLOGY: none sent COMPLICATIONS: None Patient was transported to: ICU Patient's condition: stable Indications: Jared is a 59-year-old male with a recent history of coffee-ground emesis and melena. He came back to the emergency department with ongoing melena, and had an episode of hypotension associated with acute blood loss anemia was brought to the operating room for emergent EGD Findings: Diffuse gastritis, with a few punctate areas of peptic ulcer disease, and 1 culprit lesion associated with a visible vessel Procedure Description: Jared was brought into the operating room, and he underwent emergent rapid sequence intubation. Next, I advanced a gastroscope down the esophagus into the stomach. The upper, mid, lower esophagus were all normal in course and caliber. There was no evidence of any esophageal variceal disease. Z-line is encountered around 38 cm past the incisors. I advanced down across the GE junction into the stomach, which was filled with a combination of fresh, as well as clotted blood. Using combination of suction and irrigation, all of the old clotted blood was removed. This required removal of several large clots out along the length of the esophagus with multiple passages of the endoscope to complete the evacuation. I advanced down across the pylorus into the duodenum, where there was also some blood. This appeared more consistent with older blood. I was able to irrigate all of this clean. I saw no evidence of any active bleeding down through the third portion of the duodenum. I brought the camera back up into the stomach, and examined the antrum. There was 1 punctate lesion along the lesser curvature, on the posterior wall. This was cauterized. I examined the rest of the gastric body, which appeared mildly irritated, but with no evidence of any active bleeding. I performed retroflexion. There are some punctate areas of peptic ulcer disease up in the cardia. 3 of these were cauterized. There was another small area of ulceration that appeared to have a visible vessel passing beneath it. This did have some stigmata of recent hemorrhage, and to resolution 360 clips were placed across this ulcer. Again, all of the stomach was irrigated, and the previously mentioned areas were reexamined. I saw no evidence of any ongoing bleeding. I then emptied the stomach completely and brought out along the length of the esophagus 1 last time. Jared was then extubated, and transferred to the intensive care unit for ongoing resuscitation and monitoring. Date of Procedure: 03/09/25
[2025-03-13 12:52] LABS: Helicobacter pylori Ag, Feces Positive (Negative)
== END 2025-03-11 10:05 | disposition home or self-care (01) ==
LOC: ER 15:56 → ICU 18:57
PROVIDERS: Physician Assistant; Admitting Provider Surgery; Emergency Provider Surgery; PCP Nurse Practitioner Family; Visit Provider Surgery
PROC: 0DJ68ZZ Inspection of Stomach, Via Natural or Artificial Opening Endoscopic (ICD-10-PCS; CPT 43235; principal; 2025-03-09 17:20)
DX: K25.4 Chronic or unspecified gastric ulcer with hemorrhage (principal); D62 Acute posthemorrhagic anemia; K29.61 Other gastritis with bleeding; I95.89 Other hypotension; Z79.01 Long term (current) use of anticoagulants; Z79.899 Other long term (current) drug therapy; C67.9 Malignant neoplasm of bladder, unspecified; Z86.73 Personal history of transient ischemic attack (TIA), and cerebral infarction without residual deficits; K21.9 Gastro-esophageal reflux disease without esophagitis; I48.91 Unspecified atrial fibrillation; I10 Essential (primary) hypertension
CPT/HCPCS: 43255; 36415; 80048; 80053; 86850; 86900; 86901; 86920; 87338; 93005; 96361; 96374; 99285; 83735; 84484; 85018; 85025; 85610; 93010; G0378; J0330; J2003; J2250; J2371; J2470; J2704; J3010; J3490; P9016

== ENCOUNTER 2025-03-13 10:51 | Outpatient (CLI) | payer OTHER, SELFPAY ==
[2025-03-13 09:42] LABS: HGB 8.9 g/dL (13.5-17.5)
[2025-03-13 10:14] LABS: Iron 44 ug/dL (65-175); Total Iron Binding Capacity 294 ug/dL (250-425); Transferrin Sat 15 % (20-55)
== END 2025-03-13 10:52 | disposition home or self-care (01) ==
PROVIDERS: PCP Nurse Practitioner Family; Visit Provider Surgery
DX: D62 Acute posthemorrhagic anemia (principal)
CPT/HCPCS: 36415; 83540; 83550; 85018

== ENCOUNTER 2025-03-16 14:46 | Outpatient (REF) | payer OTHER, SELFPAY ==
[2025-03-16 20:44] LABS: Abs Immature Grans 0.04 10^3/uL (0.0-0.06); HCT 28.0 % (40.0-50.0); HGB 9.3 g/dL (13.5-17.5); Immature Grans % 0.5 %; MCH 31.1 pg (27.0-33.0); MCHC 33.2 % (32.0-36.0); MCV 94 fL (80-95); MPV 11.1 fL (8.0-11.0); Platelet Count 292 10^3/uL (130-400); RBC 2.99 10^6/uL (4.36-5.78); RDW 14.7 % (11.8-14.1); RDW-SD 49.8 fL; WBC 8.21 10^3/uL (4.4-10.8)
[2025-03-16 20:58] LABS: Anion Gap 6.6 mmol/L (3-11); BUN 16 mg/dL (9-23); CO2 27.4 mmol/L (20.0-31.0); Calcium 8.8 mg/dL (8.3-10.6); Chloride 108 mmol/L (98-107); Glucose 106 mg/dL (74-106); Potassium 4.2 mmol/L (3.5-5.1); Sodium 142 mmol/L (136-145)
== END 2025-03-16 14:47 | disposition home or self-care (01) ==
LOC: NCHCN 14:46
PROVIDERS: PCP Nurse Practitioner Family; Visit Provider Nurse Practitioner Family
DX: K92.2 Gastrointestinal hemorrhage, unspecified (principal)
CPT/HCPCS: 80048; 85025